=== PATIENT | female | born 1935 | race Caucasian/White ===

== ENCOUNTER 2017-02-26 15:30 | Inpatient (IN) | payer MEDICARE ==
[~2017-02-26] VITALS: Ht 160 cm; Wt 115.3 kg
[~2017-02-26 15:30] MED LIST: ALLO100 PO; ASPI325T PO; DYAZ PO; FURO20TA PO; LISI40TA PO; LORA1TAB PO; POTA-243 PO; VITA500015 PO
[2017-02-26 15:38] VITALS: BP 154/80; PULSE 80; RESP 20; TEMP 98.4; O2SAT 100
--- NOTE | 2017-02-26 15:45 | PD ---
Physical Exam Time Seen by Provider: 15:40 Narrative 82yo F c/o rash after taking Bactrim for 3 days for a different rash being treated by dermatology. Last took Bactrim Wednesday night and saw chief minister yesterday. Fever 102.0 last night; denies fever today. Denies airway edema. No change in SOB. Patient seen in triage. VS reviewed. Awaiting bed placement. Data Data Last Documented VS Vital Signs Date Time Temp Pulse Resp B/P Pulse Ox O2 Delivery O2 Flow Rate FiO2 02/26/17 15:38 98.4 80 20 154/80 100 Room Air MDM Supervised Visit with OBDULIA: Darlene Carr Feb 26, 2017 15:45
[2017-02-26] MEDS ORDERED: DOXY100C PO (15:57)
[2017-02-26] MEDS ORDERED: ASPI325T PO (15:57)
[2017-02-26] MEDS ORDERED: ALLO100T PO (15:57)
[2017-02-26] MEDS ORDERED: TRIA37.5 PO (15:57)
[2017-02-26] MEDS ORDERED: LORA1TAB12 PO (15:57)
--- NOTE | 2017-02-26 16:18 | PD ---
HPI Chief Complaint: Skin Problem Time Seen by Provider: 16:15 Travel History International Travel<30 days: No Contact w/Intl Traveler<30days: No Traveled to known affect area: No History of Present Illness HPI 82 year old female presents to the emergency department for evaluation of a skin rash/fever. Patient states she has a rash underneath her breasts, groin, skinfolds the abdomen has been ongoing. She states she saw her cork painter and grader who placed her on Bactrim after a culture came back. She states that she took 6 pills of the Bactrim and started to notice a rash on her bilateral upper extremities and bilateral posterior thighs. She states the rash is painful. Patient reports she had a fever for 102 last night between 9 and 10 PM. She denies fever today. Patient denies any chest pain or shortness of breath. No abdominal pain. Patient's primary care physician is Dr. Beach. Patient states that he put her on doxycycline which she has taken 1 pill. PFSH Past Medical History Arthritis: Yes Asthma: No Autoimmune Disease: No Blood Disorders: No Bipolar Disorder: Yes Anxiety: Yes Heart Rhythm Problems: No Cancer: No Cardiovascular Problems: Yes High Cholesterol: Yes Chemotherapy: No Chest Pain: No Congestive Heart Failure: No COPD: No Cerebrovascular Accident: No Diminished Hearing: No Deep Vein Thrombosis: Yes (09/28/2008) Endocrine: No Gastrointestinal Disorders: No GERD: No Genitourinary: Yes Headaches: No Hepatitis: No Hiatal Hernia: No Hypertension: Yes Immune Disorder: No Implanted Vascular Access Dvce: Yes Kidney Stones: No Musculoskeletal: Yes Neurologic: Yes Psychiatric: No Reproductive: No Respiratory: Yes Myocardial Infarction: No Radiation Therapy: No Renal Failure: No Seizures: No Sleep Apnea: Yes (C-PAP @night) Ulcer: No Tetanus Vaccination: > 5 Years Past Surgical History Abdominal Surgery: Yes (gall blader) AICD: No Appendectomy: Yes Body Medical Devices: EYE LENS Cardiac Surgery: No Cholecystectomy: Yes Ear Surgery: No Endocrine Surgery: No Eye Surgery: Yes (OPAL CATARACT ) Genitourinary Surgery: No Gynecologic Surgery: Yes (hysterctomy) Hysterectomy: Yes Joint Replacement: Yes (LEFT PARTIAL KNEE REPLACEMENT 09/17/2008) Neurologic Surgery: No Oral Surgery: Yes (T&A CHILDHOOD) Pacemaker: No Thoracic Surgery: No Tonsillectomy: Yes Other Surgery: Yes (REVISED LEFT KNEE 2009) Social History Alcohol Use: No Tobacco Use: No Substance Use: No Allergies-Medications (Allergen,Severity, Reaction): Coded Allergies: Codeine (Verified Allergy, Severe, INCOHERENT, 02/26/17) Naprosyn (Verified Allergy, Severe, 02/26/17) Latex (Verified Allergy, Unknown, POSSIBLE ALLERGY, 02/26/17) Reported Meds & Prescriptions Reported Meds & Active Scripts Active Reported Doxycycline Hyclate 100 Mg Cap 100 Mg PO BID Lorazepam 1 Mg Tab 1 Mg PO BID PRN Aspirin 325 Mg Tab 325 Mg PO DAILY Allopurinol 100 Mg Tab 100 Mg PO BID Triamterene-Hydrochlorothiazide 37.5-25 Mg Tab 1 Tab PO DAILY Review of Systems Except as stated in HPI: all other systems reviewed are Neg Physical Exam Narrative GENERAL: Well-nourished, well-developed elderly female patient, afebrile. SKIN: Focused skin assessment warm/dry. Erythema and pustules noted to bilateral upper extremities. Patient has erythematous excoriation to the under the bilateral breasts, abdominal skin folds, coin. She has scaly erythematous rash to the posterior thighs. HEAD: Normocephalic. Atraumatic. EYES: No scleral icterus. No injection or drainage. NECK: Supple, trachea midline. No JVD or lymphadenopathy. CARDIOVASCULAR: Regular rate and rhythm without murmurs, gallops, or rubs. RESPIRATORY: Breath sounds equal bilaterally. No accessory muscle use. Lungs sounds are clear to auscultation. GASTROINTESTINAL: Abdomen soft, non-tender, nondistended. MUSCULOSKELETAL: No cyanosis, or edema. BACK: Nontender without obvious deformity. No CVA tenderness. Data Data Last Documented VS Vital Signs Date Time Temp Pulse Resp B/P Pulse Ox O2 Delivery O2 Flow Rate FiO2 02/26/17 17:06 100.4 02/26/17 16:21 Room Air 02/26/17 15:38 80 20 154/80 100 Orders Complete Blood Count With Diff (02/26/17 16:08) Comprehensive Metabolic Panel (02/26/17 16:08) Lactic Acid Sepsis Protocol (02/26/17 16:08) Urinalysis - C+S If Indicated (02/26/17 16:08) Blood Culture (02/26/17 16:08) Ecg Monitoring (02/26/17 16:08) Iv Access Insert/Monitor (02/26/17 16:08) Oximetry (02/26/17 16:08) Oxygen Administration (02/26/17 16:08) Sodium Chlorid 0.9% 500 Ml Inj (Ns 500 M (02/26/17 16:30) Acetaminophen (Tylenol) (02/26/17 17:15) Sodium Chlorid 0.9% 500 Ml Inj (Ns 500 M (02/26/17 18:15) Labs Laboratory Tests Test 02/26/17 02/26/17 16:45 17:00 White Blood Count 16.6 TH/MM3 Red Blood Count 4.13 MIL/MM3 Hemoglobin 11.5 GM/DL Hematocrit 37.1 % Mean Corpuscular Volume 89.7 FL Mean Corpuscular Hemoglobin 28.0 PG Mean Corpuscular Hemoglobin 31.2 % Concent Red Cell Distribution Width 17.0 % Platelet Count 273 TH/MM3 Mean Platelet Volume 8.1 FL Neutrophils (%) (Auto) 79.5 % Lymphocytes (%) (Auto) 11.5 % Monocytes (%) (Auto) 6.9 % Eosinophils (%) (Auto) 1.9 % Basophils (%) (Auto) 0.2 % Neutrophils # (Auto) 13.2 TH/MM3 Lymphocytes # (Auto) 1.9 TH/MM3 Monocytes # (Auto) 1.1 TH/MM3 Eosinophils # (Auto) 0.3 TH/MM3 Basophils # (Auto) 0.0 TH/MM3 CBC Comment DIFF FINAL Differential Comment Sodium Level 138 MEQ/L Potassium Level 4.1 MEQ/L Chloride Level 106 MEQ/L Carbon Dioxide Level 25.4 MEQ/L Anion Gap 7 MEQ/L Blood Urea Nitrogen 20 MG/DL Creatinine 1.39 MG/DL Estimat Glomerular Filtration 36 ML/MIN Rate Random Glucose 88 MG/DL Calcium Level 8.6 MG/DL Total Bilirubin 0.6 MG/DL Aspartate Amino Transf 18 U/L (AST/SGOT) Alanine Aminotransferase 17 U/L (ALT/SGPT) Alkaline Phosphatase 94 U/L Total Protein 6.5 GM/DL Albumin 2.8 GM/DL Lactic Acid Level 2.1 mmol/L [facility] Medical Decision Making Medical Screen Exam Complete: Yes Emergency Medical Condition: Yes Medical Record Reviewed: Yes Differential Diagnosis Cellulitis versus sepsis versus allergic reaction versus [place] intertrigo Narrative Course 82 year old female presents to the emergency department for evaluation of painful skin rash since yesterday with fever last night. CBC, CMP, Lactic acid , blood cultures x2, UA are ordered and pending. Patient is given NS 500 ml bolus. CBC shows leukocytosis of 16.6, neutrophil percentage 79.5. CMP shows BUN 20, creatinine 1.39. Lactic acid is elevated at 2.1. UA is still pending. My attending physician, Dr. gambino, examined the patient with me. This could be pustular psoriasis. We will hold on antibiotics at this time until patient is admitted due to possibility of pustular psoriasis. Patient is given additional normal saline 500 mL bolus. [facility] is paged for admission. Dr. Cortez accepted admission. Sepsis Criteria SIRS Criteria (2 or more): WBC > 85058, < 4000 or > 10% bands Diagnosis Primary Impression: Skin rash Additional Impressions: Leukocytosis Qualified Code: D72.829 - Leukocytosis, unspecified type Fever Qualified Code: R50.9 - Fever, unspecified fever cause Admitting Information Admitting Physician Requests: Admit Gena Simeon Feb 26, 2017 16:18
[2017-02-26] MEDS ORDERED: SODIUM CHLORID 0.9% 500 ML INJ 500 ML IV ONE ×2 (16:30→18:15)
[2017-02-26 17:06] VITALS: BP 159/87; TEMP 100.4
[2017-02-26] MEDS ORDERED: ACETAMINOPHEN 325 MG TAB PO ONE (17:15)
[2017-02-26 17:21] LABS: AUTOMATED NEUTROPHIL # 13.2 TH/MM3 (1.8-7.7); BASOPHIL % 0.2 % (0.0-2.0); EOSINOPHIL # 0.3 TH/MM3 (0-0.4); EOSINOPHIL % 1.9 % (0.0-4.0); HEMATOCRIT 37.1 % (35.0-46.0); HEMO FLAGS DIFF FINAL; LYMPH % 11.5 % (9.0-44.0); LYMPHOCYTE # 1.9 TH/MM3 (1.0-4.8); MEAN CELL VOLUME 89.7 FL (80.0-100.0); MEAN CORPUSCULAR HGB CONC 31.2 % (32.0-36.0); MONO % 6.9 % (0.0-8.0); NEUT % 79.5 % (16.0-70.0); PLATELET COUNT 273 TH/MM3 (150-450); RED BLOOD COUNT 4.13 MIL/MM3 (4.00-5.30); WHITE BLOOD COUNT 16.6 TH/MM3 (4.0-11.0)
[2017-02-26 17:41] LABS: ANION GAP 7 MEQ/L (5-15); AST (GOT) 18 U/L (15-37); BICARBONATE 25.4 MEQ/L (21.0-32.0); BLOOD UREA NITROGEN 20 MG/DL (7-18); CHLORIDE 106 MEQ/L (98-107); GLOMERULAR FILTRATION RATE 36 ML/MIN (>89); POTASSIUM 4.1 MEQ/L (3.5-5.1); SODIUM (NA) 138 MEQ/L (136-145)
[2017-02-26 17:43] LABS: ALT (GPT) 17 U/L (10-53)
[2017-02-26 17:44] LABS: ALKALINE PHOSPHATASE 94 U/L (45-117); TOTAL BILIRUBIN ADULT 0.6 MG/DL (0.2-1.0)
--- NOTE | 2017-02-26 18:27 | PD ---
Physical Exam Date Seen by Provider: Feb 26, 2017 Time Seen by Provider: 18:22 Narrative 82-year-old female came to the emergency room with history of rash all over her body since yesterday. Patient does have some rash that is getting treated by her maker up folding with Bactrim. However this new rash started which is more generalized since yesterday. Patient is being seen by the nurse practitioner and I'm supervising her. Patient had a low-grade temperature in the ER and leukocytosis. I went and examined her and patient has papular pustular erythematous rash that's generalized including the palmar aspect. There are about 0.5 mm diameter each. Patient does appear to be in some distress and pain and arthralgia but does not appear to be toxic. To me the rash and the entire picture seems to fit for generalized pustular psoriasis. The treatment for GPP is oral retinoids or methotrexate as first line agent. There is no oral retinoid in the formulary available. Up-to-date clearly says that GPP could have low-grade fever, leukocytosis and elevated sedimentation rate. I have advised not to get her started on antibiotics. Patient will received some fluid especially since the lactic acid is mildly elevated. I would like her to be admitted and be seen by infectious disease. I've explained most of this to the family and the patient. They understand and are agreeable with the admission. Data Data Last Documented VS Vital Signs Date Time Temp Pulse Resp B/P Pulse Ox O2 Delivery O2 Flow Rate FiO2 02/26/17 17:06 100.4 159/87 02/26/17 16:21 Room Air 02/26/17 15:38 80 20 100 Orders Complete Blood Count With Diff (02/26/17 16:08) Comprehensive Metabolic Panel (02/26/17 16:08) Lactic Acid Sepsis Protocol (02/26/17 16:08) Urinalysis - C+S If Indicated (02/26/17 16:08) Blood Culture (02/26/17 16:08) Ecg Monitoring (02/26/17 16:08) Iv Access Insert/Monitor (02/26/17 16:08) Oximetry (02/26/17 16:08) Oxygen Administration (02/26/17 16:08) Sodium Chlorid 0.9% 500 Ml Inj (Ns 500 M (02/26/17 16:30) Acetaminophen (Tylenol) (02/26/17 17:15) Sodium Chlorid 0.9% 500 Ml Inj (Ns 500 M (02/26/17 18:15) Admit Order (Ed Use Only) (02/26/17 18:12) Labs Laboratory Tests Test 02/26/17 02/26/17 16:45 17:00 White Blood Count 16.6 TH/MM3 Red Blood Count 4.13 MIL/MM3 Hemoglobin 11.5 GM/DL Hematocrit 37.1 % Mean Corpuscular Volume 89.7 FL Mean Corpuscular Hemoglobin 28.0 PG Mean Corpuscular Hemoglobin 31.2 % Concent Red Cell Distribution Width 17.0 % Platelet Count 273 TH/MM3 Mean Platelet Volume 8.1 FL Neutrophils (%) (Auto) 79.5 % Lymphocytes (%) (Auto) 11.5 % Monocytes (%) (Auto) 6.9 % Eosinophils (%) (Auto) 1.9 % Basophils (%) (Auto) 0.2 % Neutrophils # (Auto) 13.2 TH/MM3 Lymphocytes # (Auto) 1.9 TH/MM3 Monocytes # (Auto) 1.1 TH/MM3 Eosinophils # (Auto) 0.3 TH/MM3 Basophils # (Auto) 0.0 TH/MM3 CBC Comment DIFF FINAL Differential Comment Sodium Level 138 MEQ/L Potassium Level 4.1 MEQ/L Chloride Level 106 MEQ/L Carbon Dioxide Level 25.4 MEQ/L Anion Gap 7 MEQ/L Blood Urea Nitrogen 20 MG/DL Creatinine 1.39 MG/DL Estimat Glomerular Filtration 36 ML/MIN Rate Random Glucose 88 MG/DL Calcium Level 8.6 MG/DL Total Bilirubin 0.6 MG/DL Aspartate Amino Transf 18 U/L (AST/SGOT) Alanine Aminotransferase 17 U/L (ALT/SGPT) Alkaline Phosphatase 94 U/L Total Protein 6.5 GM/DL Albumin 2.8 GM/DL Lactic Acid Level 2.1 mmol/L [facility] Supervised Visit with OBDULIA: Yes Diagnosis Primary Impression: Skin rash Additional Impressions: Fever Qualified Code: R50.9 - Fever, unspecified fever cause Leukocytosis Qualified Code: D72.829 - Leukocytosis, unspecified type Generalized pustular psoriasis of von Zumbush Kaur Woodall MD Feb 26, 2017 18:27
[2017-02-26] MEDS ORDERED: ACETAMINOPHEN 325 MG TAB PO PRN (19:00)
[2017-02-26] MEDS ORDERED: VANCOMYCIN INJ 1,000 MG in SODIUM CHLOR 0.9% 250 ML INJ 250 ML IV SCH (19:00)
[2017-02-26] MEDS ORDERED: PIPERACIL-TAZO 3.375 GM PREMIX 50 ML IV SCH (19:00)
[2017-02-26] MEDS ORDERED: cloNIDine HCL 0.2 MG TAB PO PRN (19:00)
[2017-02-26] MEDS ORDERED: NALOXONE HCL 0.4 MG/ML AMP IV PRN (19:00)
[2017-02-26] MEDS ORDERED: TEMAZEPAM 15 MG CAP PO PRN (19:00)
[2017-02-26] MEDS ORDERED: SODIUM CHLORIDE 0.9% FLUSH 10 ML FLUSH IV FLUSH PRN (19:00)
[2017-02-26] MEDS ORDERED: ACETAMINOPHEN/HYDROcodone 325 MG/5 MG TAB PO PRN (19:00)
[2017-02-26] MEDS ORDERED: MAGNESIUM HYDROXIDE SUSP 30 ML CUP PO PRN (19:00)
[2017-02-26] MEDS ORDERED: ONDANSETRON HCL 4 MG/2 ML VIAL IVP PRN (19:00)
[2017-02-26] MEDS ORDERED: ENALAPRILAT 1.25 MG/ML VIAL IV PRN (19:00)
[2017-02-26 19:21] LABS: BLOOD, URINE NEG (NEG); GLUCOSE,URINE NEG (NEG); KETONE, URINE NEG (NEG); NITRITE,URINE NEG (NEG); SQUAMOUS EPITHELIAL CELL URINE 14 /hpf (0-5); URINE COLOR YELLOW (YELLW/STRAW)
[2017-02-26 19:26] LABS: COMMENT (UR) CATH-CULT NOT IND; CULTURE IF INDICATED CATH CULTURE NOT IND
--- NOTE | 2017-02-26 19:26 | RADRPT ---
EXAM DATE/TIME: 02/26/2017 19:02 [place] COMPARISON: CHEST SINGLE AP, June 28, 2015, 19:18. INDICATIONS : Fever. MEDICAL HISTORY : respiratory disorders. SURGICAL HISTORY : bilateral cataract sx, hysterectomy, left knee sx, appendectomy ENCOUNTER: Initial ACUITY: 1 day PAIN SCORE: 0/10 LOCATION: Bilateral chest FINDINGS: A single view of the chest demonstrates the lungs to be symmetrically aerated without evidence of mas s, infiltrate or effusion. The cardiomediastinal contours are unremarkable. Osseous structures are intact. CONCLUSION: No acute disease. Néstor Diana MD FACR on February 26, 2017 at 19:24 Board Certified Radiologist. This report was verified electronically.
[2017-02-26 19:34] LABS: LACTIC ACID GHOST NOT REPORTABLE
[2017-02-26] MEDS: 1/2 NS + KCL 20 MEQ INJ 1,000 ML IV SCH (20:18)
[2017-02-26 20:41] VITALS: BP 153/63; PULSE 88; RESP 18; TEMP 97.9; O2SAT 97
[2017-02-26 21:00] VITALS: PULSE 87
[2017-02-26] MEDS: ALLOPURINOL 100 MG TAB PO SCH (22:08)
[2017-02-26] MEDS: SODIUM CHLORIDE 0.9% FLUSH 10 ML FLUSH IV FLUSH SCH (22:09)
[2017-02-26] MEDS ORDERED: methylPREDNISolone SOD SUCC 40 MG/1 ML VIAL IV ONE (22:45)
[2017-02-26] MEDS: LORazepam 1 MG TAB PO PRN (22:52)
[2017-02-26] MEDS: IBUPROFEN 400 MG TAB PO PRN (22:53)
[2017-02-27] VITALS: BP 144/65; PULSE 80; RESP 18; TEMP 96.7; O2SAT 99
[2017-02-27 04:00] VITALS: BP 119/57; PULSE 75; RESP 16; TEMP 97.6; O2SAT 100
[2017-02-27 06:15] LABS: AUTOMATED NEUTROPHIL # 14.4 TH/MM3 (1.8-7.7); BASOPHIL % 0.1 % (0.0-2.0); EOSINOPHIL % 0.1 % (0.0-4.0); HEMATOCRIT 36.4 % (35.0-46.0); HEMO FLAGS DIFF FINAL; LYMPH % 7.8 % (9.0-44.0); LYMPHOCYTE # 1.2 TH/MM3 (1.0-4.8); MEAN CELL VOLUME 89.3 FL (80.0-100.0); MEAN CORPUSCULAR HEMOGLOBIN 28.1 PG (27.0-34.0); MEAN CORPUSCULAR HGB CONC 31.5 % (32.0-36.0); MONO % 1.4 % (0.0-8.0); NEUT % 90.6 % (16.0-70.0); PLATELET COUNT 248 TH/MM3 (150-450); RED BLOOD COUNT 4.07 MIL/MM3 (4.00-5.30); RED CELL DISTRIBUTION WIDTH 16.9 % (11.6-17.2); WHITE BLOOD COUNT 15.9 TH/MM3 (4.0-11.0)
[2017-02-27 06:46] LABS: BICARBONATE 22.2 MEQ/L (21.0-32.0); POTASSIUM 4.2 MEQ/L (3.5-5.1)
[2017-02-27 08:35] VITALS: BP 134/70; PULSE 75; RESP 18; TEMP 97.6; O2SAT 99
[2017-02-27] MEDS ORDERED: PNEUMOCOCCAL POLYVALENT INJ 25 MCG/0.5 ML SYR IM ONE (09:00)
[2017-02-27] MEDS: SODIUM CHLORIDE 0.9% FLUSH 10 ML FLUSH IV FLUSH SCH ×2 (09:00→20:43)
[2017-02-27] MEDS: TRIAMTERENE/HCTZ 37.5 MG/25 MG TAB PO SCH (10:12)
[2017-02-27] MEDS: ALLOPURINOL 100 MG TAB PO SCH ×2 (10:12→20:43)
[2017-02-27] MEDS: ASPIRIN 325 MG TAB PO SCH (10:14)
[2017-02-27] MEDS: 1/2 NS + KCL 20 MEQ INJ 1,000 ML IV SCH (10:17)
[2017-02-27 12:00] VITALS: BP 136/64; PULSE 77; RESP 16; TEMP 96.6; O2SAT 97
[2017-02-27] MEDS: NYSTATIN 100,000 U/GM PWD 15 GM BTL TOPICAL SCH ×2 (14:45→22:00)
--- NOTE | 2017-02-27 14:52 | HHI.HP ---
HPI Service [facility] Hospitalists Primary Care Physician Saud Beach MD, PhD Admission Diagnosis skin rash, leukocytosis, fever, r/o sepsis Chief Complaint: rash Travel History International Travel<30 Days: No Contact w/Intl Traveler <30 Da: No Traveled to Known Affected Are: No History of Present Illness Pt is an 82 y/o F with depression, anxiety, thyroid nodule, hypertension, chronic kidney disease stage III, gout, hyperlipidemia, orbit obesity, osteoarthritis. Patient presented to the ER 02/26/17 with complaint of diffuse rash over her entire body which started the day prior. Patient was placed on Bactrim for pre-existing rash by dermatology. However, the current rash worsened following initiation of Bactrim therapy. In the ER, patient had a fever with MAXIMUM TEMPERATURE of 100.4F. Patient's white count was elevated at 6.6k. Patient was admitted to [facility] for further evaluation and treatment Review of Systems Constitutional: DENIES: Diaphoretic episodes, Fatigue, Fever, Weight gain, Weight loss, Chills, Dizziness, Change in appetite, Night Sweats Endocrine: DENIES: Heat/cold intolerance, Polydipsia, Polyuria, Polyphagia Eyes: DENIES: Blurred vision, Diplopia, Eye inflammation, Eye pain, Vision loss , Photosensitivity, Double Vision Ears, nose, mouth, throat: DENIES: Tinnitus, Hearing loss, Vertigo, Nasal discharge, Oral lesions, Throat pain, Hoarseness, Ear Pain, Running Nose, Epistaxis, Sinus Pain, Toothache, Odynophagia Respiratory: DENIES: Apneas, Cough, Snoring, Wheezing, Hemoptysis, Sputum production, Shortness of breath Gastrointestinal: DENIES: Abdominal pain, Black stools, Bloody stools, BRB per rectum, Constipation, Diarrhea, GERD, Nausea, Reflux, Vomiting, Difficulty Swallowing, Anorexia Genitourinary: DENIES: Urinary frequency, Urinary incontinence, Urgency, Hematuria, Dysuria, Nocturia Musculoskeletal: DENIES: Joint pain, Muscle aches, Stiffness, Joint Swelling, Back pain, Neck pain Integumentary: COMPLAINS OF: Rash, DENIES: Abnormal pigmentation, Pruritus, Nail changes, Breast masses, Breast skin changes, Nipple discharge Hematologic/lymphatic: DENIES: Bruising, Lymphadenopathy Immunologic/allergic: DENIES: Eczema, Urticaria Neurologic: DENIES: Abnormal gait, Headache, Localized weakness, Paresthesias, Seizures, Speech Problems, Tremor, Poor Balance Psychiatric: DENIES: Anxiety, Confusion, Mood changes, Depression, Hallucinations, Agitation, Suicidal Ideation, Homicidal Ideation, Delusions, History of Bipolar, History of Schizophrenia Past Family Social History Past Medical History 1) hypertension 2) depression with anxiety 3) thyroid nodule 4) chronic kidney disease, stage III 5) gout 6) hyperlipidemia 7) osteoarthritis 8) morbid obesity 9) allergic rhinitis 10) overactive bladder 11) restless leg syndrome Past Surgical History 1. History of Appendectomy 2. History of Biopsy Skin 3. History of Breast Surgery Lumpectomy 4. History of Cataract Surgery 5. History of Cataract Surgery 6. History of Cholecystectomy Laparoscopic 7. History of Knee Arthroplasty 8. History of Revision Of Total Knee Arthroplasty, All Components 9. History of Tonsillectomy With Adenoidectomy 10. History of Total Abdominal Hysterectomy With Remov of Srikanth Ovaries (cervix removed) 11. History of Tubal Ligation 12. History of Uterine Myomectomy Reported Medications Last Impressions Chest X-Ray 02/26/17 185 Signed Impressions: Service Date/Time: Wednesday, February 26, 2017 19:02 - CONCLUSION: No acute disease. Néstor Diana MD FACR Allergies: Coded Allergies: Codeine (Verified Allergy, Severe, INCOHERENT, 02/26/17) Bactrim (Verified Allergy, Intermediate, pustulated rash, 02/27/17) Latex (Verified Allergy, Unknown, POSSIBLE ALLERGY, 02/26/17) Naprosyn (Verified Allergy, Unknown, 02/26/17) Patient states 15 years ago at [facility]. Patient has been taking Ibuprofen at home for years and has not had any reactions. Family History Noncontributory Social History - - Patient lives with her adult son (Dk) who is both physical and mental issues - No tobacco use - No alcohol use - No illicit street drugs Physical Exam Vital Signs Vital Signs Date Time Temp Pulse Resp B/P Pulse Ox O2 Delivery O2 Flow Rate FiO2 02/27/17 12:00 96.6 77 16 136/64 97 02/27/17 08:35 97.6 75 18 134/70 99 02/27/17 04:00 97.6 75 16 119/57 100 02/27/17 00:52 19 02/27/17 00:00 96.7 80 18 144/65 99 02/26/17 21:00 87 02/26/17 20:41 97.9 88 18 153/63 97 02/26/17 17:06 100.4 159/87 02/26/17 16:21 Room Air 02/26/17 15:38 98.4 80 20 154/80 100 Room Air Physical Exam GENERAL: This is a well-nourished, well-developed patient, in no apparent distress. SKIN: No rashes, ecchymoses or lesions. Cool and dry. HEAD: Atraumatic. Normocephalic. No temporal or scalp tenderness. EYES: Pupils equal round and reactive. Extraocular motions intact. No scleral icterus. No injection or drainage. ENT: Nose without bleeding, purulent drainage or septal hematoma. Throat without erythema, tonsillar hypertrophy or exudate. Uvula midline. Airway patent. NECK: Trachea midline. No JVD or lymphadenopathy. Supple, nontender, no meningeal signs. CARDIOVASCULAR: Regular rate and rhythm without murmurs, gallops, or rubs. RESPIRATORY: Clear to auscultation. Breath sounds equal bilaterally. No wheezes , rales, or rhonchi. GASTROINTESTINAL: Abdomen soft, non-tender, nondistended. No hepato-splenomegaly , or palpable masses. No guarding. MUSCULOSKELETAL: Extremities without clubbing, cyanosis, or edema. No joint tenderness, effusion, or edema noted. No calf tenderness. Negative Homans sign bilaterally. NEUROLOGICAL: Awake and alert. Cranial nerves II through XII intact. Motor and sensory grossly within normal limits. Five out of 5 muscle strength in all muscle groups. Normal speech. Laboratory Laboratory Tests Test 02/26/17 02/26/17 02/26/17 02/27/17 16:45 17:00 18:29 00:10 White Blood Count 16.6 Red Blood Count 4.13 Hemoglobin 11.5 Hematocrit 37.1 Mean Corpuscular Volume 89.7 Mean Corpuscular Hemoglobin 28.0 Mean Corpuscular Hemoglobin 31.2 Concent Red Cell Distribution Width 17.0 Platelet Count 273 Mean Platelet Volume 8.1 Neutrophils (%) (Auto) 79.5 Lymphocytes (%) (Auto) 11.5 Monocytes (%) (Auto) 6.9 Eosinophils (%) (Auto) 1.9 Basophils (%) (Auto) 0.2 Neutrophils # (Auto) 13.2 Lymphocytes # (Auto) 1.9 Monocytes # (Auto) 1.1 Eosinophils # (Auto) 0.3 Basophils # (Auto) 0.0 CBC Comment DIFF FINAL Differential Comment Sodium Level 138 Potassium Level 4.1 Chloride Level 106 Carbon Dioxide Level 25.4 Anion Gap 7 Blood Urea Nitrogen 20 Creatinine 1.39 Estimat Glomerular Filtration 36 Rate Random Glucose 88 Calcium Level 8.6 Total Bilirubin 0.6 Aspartate Amino Transf 18 (AST/SGOT) Alanine Aminotransferase 17 (ALT/SGPT) Alkaline Phosphatase 94 Total Protein 6.5 Albumin 2.8 Lactic Acid Level 2.1 1.1 Urine Color YELLOW Urine Turbidity HAZY Urine pH 6.0 Urine Specific Bloomer 1.018 Urine Protein TRACE Urine Glucose (UA) NEG Urine Ketones NEG Urine Occult Blood NEG Urine Nitrite NEG Urine Bilirubin NEG Urine Urobilinogen LESS THAN 2.0 Urine Leukocyte Esterase LARGE Urine WBC 4 Urine Squamous Epithelial 14 Cells Microscopic Urinalysis Comment CATH-CULT NOT IND Test 02/27/17 05:40 White Blood Count 15.9 Red Blood Count 4.07 Hemoglobin 11.4 Hematocrit 36.4 Mean Corpuscular Volume 89.3 Mean Corpuscular Hemoglobin 28.1 Mean Corpuscular Hemoglobin 31.5 Concent Red Cell Distribution Width 16.9 Platelet Count 248 Mean Platelet Volume 8.1 Neutrophils (%) (Auto) 90.6 Lymphocytes (%) (Auto) 7.8 Monocytes (%) (Auto) 1.4 Eosinophils (%) (Auto) 0.1 Basophils (%) (Auto) 0.1 Neutrophils # (Auto) 14.4 Lymphocytes # (Auto) 1.2 Monocytes # (Auto) 0.2 Eosinophils # (Auto) 0.0 Basophils # (Auto) 0.0 CBC Comment DIFF FINAL Differential Comment Sodium Level 136 Potassium Level 4.2 Chloride Level 106 Carbon Dioxide Level 22.2 Anion Gap 8 Blood Urea Nitrogen 23 Creatinine 1.36 Estimat Glomerular Filtration 37 Rate Random Glucose 163 Calcium Level 8.4 Date/Time Procedure Status Source Growth 02/26/17 17:00 Aerobic Blood Culture - Preliminary Resulted Blood Peripheral NO GROWTH IN 1 DAY 02/26/17 17:00 Anaerobic Blood Culture - Preliminary Resulted Blood Peripheral NO GROWTH IN 1 DAY Result Diagram: 02/27/17 0540 02/27/17 0540 Imaging Last Impressions Chest X-Ray 02/26/17 1851 Signed Impressions: Service Date/Time: Sunday, February 26, 2017 19:02 - CONCLUSION: No acute disease. Néstor Diana MD FACR Septic Shock Reassessment Heart: Regular rate and rhythm Lungs: Clear Skin: Warm Peripheral Pulses: Bounding Right Radial Bounding Left Radial Bounding Right Popliteal Bounding Left Popliteal Bounding Right Dorsalis Pedis Bounding Left Dorsalis Pedis Bounding Right Posterior Tibial Bounding Left Posterior Tibial Capillary Refill: Brisk Assessment and Plan Problem List: (1) Skin rash Status: Acute Plan: - Comanagement with infectious disease - I have reviewed the last available note from dermatology (02/25/17) in the [facility] EHR - Patient diagnosed with 1) Dyshidrotic Eczema 2) drug eruption rash 3) Intertrigio - Dermatology had recommended steroid cream, stopping Bactrim, starting doxycycline for 3 weeks - Case d/w ID, Dr. Pandey, (02/27/17). Dr. Pandey feels the predominant issue is drug eruption rash. - No antibiotics at this time - Start nystatin powder under patient's breast for tinea - Observe - Mild leukocytosis, reactive? - Repeat CBC in a.m. - No fever since 5 PM on 02/26/2017 - Observe - Stop IV fluids (2) Gout Status: Chronic Plan: - allopurinol (3) HTN (hypertension) Status: Chronic Plan: - Stable - Continue triamterene hydrochlorothiazide (4) OA (osteoarthritis) Status: Acute Plan: - ibuprofen prn (5) JUDITH (obstructive sleep apnea) Status: Acute Plan: - use home CPAP at night. Physician Certification 2 Midnight Certification Type: Admission for Inpatient Services Order for Inpatient Services The services are ordered in accordance with Medicare regulations or non- Medicare payer requirements, as applicable. In the case of services not specified as inpatient-only, they are appropriately provided as inpatient services in accordance with the 2-midnight benchmark. Estimated LOS (days): 33 3 days is the estimated time the patient will need to remain in the hospital, assuming treatment plan goals are met and no additional complications. Post-Hospital Plan: Not yet determined Problem Qualifiers (1) Gout: Qualified Code: M10.9 - Gout, unspecified cause, unspecified chronicity, unspecified site (2) HTN (hypertension): Qualified Code: I10 - Essential hypertension (3) OA (osteoarthritis): Beau Cortez DO Feb 27, 2017 14:52
[2017-02-27] MEDS: DOCUSATE SODIUM 100 MG CAP PO SCH ×2 (15:00→20:43)
[2017-02-27] MEDS ORDERED: BISACODYL 10 MG SUPP RECTAL PRN (15:00)
[2017-02-27 16:00] VITALS: BP 132/60; PULSE 82; RESP 16; TEMP 96.1; O2SAT 99
--- NOTE | 2017-02-27 16:25 | EKG ---
Date Performed: 02/26/2017 Time Performed: 19:04:57 PTAGE: 82 years EKG: Sinus rhythm WITH FIRST DEGREE AV BLOCK ABNORMAL ECG PREVIOUS TRACING : 06/28/2015 19.47 Compared to prior tracing no significant change DOCTOR: Louie Turner Interpretating Date/Time 02/27/2017 16:24:41
--- NOTE | 2017-02-27 17:05 | MB ---
cc: ROHINI CORTEZ FRANKLYN F. MD DATE OF CONSULTATION: 02/27/[address] Cortez. REASON FOR CONSULTATION Pustular psoriasis. HISTORY OF PRESENT ILLNESS This is an 82-year-old white female who presented to the emergency department with diffuse rash all over her body. The patient was being followed by a acute specialist for a skin condition and she was put on Bactrim six days ago. She stated that she took the Bactrim for three days and then she woke up with a sudden rash all over the body. The rash was noted to be different from the previous rash that she had seen the acute specialist for. She stopped taking the Bactrim and she noted that the rash was weeping for two days and then she presented to the emergency department yesterday for evaluation. She noted that the rash in the buttock area was of a nature that when she would sit on the commode she would have flaking of the skin. Initially it was noted at the upper extremities and posterior thighs. She reportedly had an elevated temperature of 102 degrees on the night before she presented to the emergency department. She was noted to have been started on doxycycline and took one pill only. She notes that there is mild itching of the skin. She tells me that there was also some drainage coming from her ear. She reported that the rash is itching but not severely. She had a temperature of 100.4 degrees in the emergency department and the white count was elevated at 16.6 with 79% neutrophils. She denies pain in the mouth. PAST MEDICAL HISTORY 1. Arthritis. 2. Hypercholesteremia. 3. Hypertension. 4. Sleep apnea. 5. Generalized pustular psoriasis. 6. History of fibroid tumors. 7. Left knee arthroplasty placed August,, revised in 2009. 8. Appendectomy. 9. Tonsillectomy. 10. Lumpectomy. 11. Total abdominal hysterectomy and salpingo-oophorectomy. ALLERGIES NAPROSYN, LATEX, CODEINE. MEDICATIONS 1. Aspirin. 2. Maxzide. 3. Ibuprofen. 4. Allopurinol. 5. Ativan. 6. The patient received one dose of Solu-Medrol yesterday evening. SOCIAL HISTORY No tobacco, no alcohol, no illicit drugs. FAMILY HISTORY Noncontributory. REVIEW OF SYSTEMS GENERAL: Significant for fever. HEAD, EARS, EYES, NOSE AND THROAT: No visual blurring or diplopia. No nasal bleeding. Positive ear drainage. No difficulty swallowing. Mild soreness of the throat. No neck swelling. CARDIOVASCULAR: No palpitation. No chest pain. RESPIRATORY: No cough or shortness of breath. GASTROINTESTINAL: No nausea, vomiting or abdominal pain. No diarrhea. GENITOURINARY: No urgency, frequency or dysuria. MUSCULOSKELETAL: No muscle aches or pains. INTEGUMENTARY: Diffuse skin rash. HEMATOPOIETIC: No easy bruising or bleeding. NEUROLOGIC: No problems with coordination or tremulousness. PSYCHIATRIC: No problems with mood changes or depression. PHYSICAL EXAMINATION GENERAL: She is an obese female who is in no acute distress. She is awake and alert and oriented. She has mild discomfort from the skin rash. VITAL SIGNS: Temperature 96.6, BP 136/64, respirations 16, heart rate 77. HEENT: The head is atraumatic. Extraocular movements grossly intact. Pupils reactive to light. No icterus. No conjunctival erythema. Oropharynx - moist mucosa without visible lesions. No thrush. NECK: Supple without adenopathy. LUNGS: Clear. HEART: Regular rate and rhythm without murmurs, rubs or gallops. ABDOMEN: Bowel sounds present, soft, nontender, obese. RECTAL: Not performed. EXTREMITIES: No clubbing or cyanosis or edema. SKIN: Diffuse maculopapular rash including the back, arms, chest, thighs, buttocks, groin. The patient has confluent erythematous areas involving the buttock and the thighs at the abdominal fold areas near the groin. The areas of the hands have pustular changes at the surface. This also encompasses the palm of the hands. There are no visible areas of the soles of the feet and there is less involvement of the tibias, and also there is very little involvement of the face. NEUROLOGIC: No gross focal findings. PSYCHIATRIC: The patient is calm and pleasant and cooperative. LABORATORY DATA WBC 15.9, platelets 248, 90% neutrophils, 7% lymphocytes, hemoglobin 11.4, creatinine 1.36, BUN 23, estimated GFR 37, sodium 136. LFTs normal. IMPRESSION 1. Diffuse skin rash which very likely is due to allergic reaction to sulfa in a patient who has been treated with Bactrim before the onset of the diffuse rash. 2. The patient reportedly may have underlying psoriasis. RECOMMENDATIONS 1. Observe without treatment with antibiotics at this time. 2. Send the urine for eosinophils. 3. Monitor the rash and monitor the temperature. 4. I would not give any additional antibiotics at this time. PLAN We may also want to consider a skin biopsy if there is not sufficient improvement over the next couple of days. Thank you for the consultation. I will follow the patient's progress along with you and will make further recommendations on followup. Juan David Worrell MD FD/BJF /2:18 PM /4:19 PM
[2017-02-27 20:00] VITALS: BP 103/51; PULSE 79; RESP 18; TEMP 97.4; O2SAT 97
[2017-02-27] MEDS: LORazepam 1 MG TAB PO PRN (22:24)
[2017-02-27] MEDS: IBUPROFEN 400 MG TAB PO PRN (22:24)
[2017-02-27] MEDS: diphenhydrAMINE HCL 25 MG CAP PO PRN (23:20)
[2017-02-28] VITALS: BP 123/58; PULSE 73; RESP 18; TEMP 96.8; O2SAT 98
[2017-02-28 04:00] VITALS: BP 140/61; PULSE 72; RESP 18; TEMP 96.7; O2SAT 98
[2017-02-28] MEDS: NYSTATIN 100,000 U/GM PWD 15 GM BTL TOPICAL SCH ×3 (06:00→22:51)
[2017-02-28 08:00] VITALS: BP 131/63; PULSE 74; RESP 16; TEMP 96.8; O2SAT 99
[2017-02-28] MEDS: SODIUM CHLORIDE 0.9% FLUSH 10 ML FLUSH IV FLUSH SCH ×2 (09:00→22:52)
[2017-02-28] MEDS: ALLOPURINOL 100 MG TAB PO SCH ×2 (09:47→22:50)
[2017-02-28] MEDS: DOCUSATE SODIUM 100 MG CAP PO SCH ×2 (09:47→21:00)
[2017-02-28] MEDS: ASPIRIN 325 MG TAB PO SCH (09:47)
[2017-02-28] MEDS: TRIAMTERENE/HCTZ 37.5 MG/25 MG TAB PO SCH (09:51)
--- NOTE | 2017-02-28 11:02 | HHI.IDPN ---
Note Infectious Disease Note Patient has no complaints except for itching of the skin. Denies chills Notes some dryness and slight burning pain at the tongue " like when you drink hot coffee and get burnt at the tongue." Presented to the emergency department with diffuse rash all over her body. The patient was being followed by a shearer printed circuit boards for a skin condition and she was put on Bactrim six days ago. She stated that she took the Bactrim for three days and then she woke up with a sudden rash all over the body. The rash was noted to be different from the previous rash that she had seen the shearer printed circuit boards for. She stopped taking the Bactrim and she noted that the rash was weeping for two days and then she presented to the emergency department for evaluation. PAST MEDICAL HISTORY 1. Arthritis. 2. Hypercholesteremia. 3. Hypertension. 4. Sleep apnea. 5. Generalized pustular psoriasis. 6. History of fibroid tumors. 7. Left knee arthroplasty placed August,, revised in 2009. 8. Appendectomy. 9. Tonsillectomy. 10. Lumpectomy. 11. Total abdominal hysterectomy and salpingo-oophorectomy. ALLERGIES NAPROSYN, LATEX, CODEINE. MEDICATIONS Current Medications Medications (Trade) Dose Ordered Sig/Ania Route PRN Reason Start Time Stop Time Status Last Admin Dose Admin Sodium Chloride (NS Flush) 2 ml UNSCH PRN IV FLUSH FLUSH AFTER USING IV ACCESS 02/26/17 19:00 Sodium Chloride (NS Flush) 2 ml BID IV FLUSH 02/26/17 21:00 02/28/17 09:00 Acetaminophen (Tylenol) 650 mg Q4H PRN PO TEMP > 100.4 02/26/17 19:00 Ondansetron HCl (Zofran Inj) 4 mg Q6H PRN IVP NAUSEA OR VOMITING 02/26/17 19:00 Temazepam (Restoril) 15 mg HS PRN PO INSOMNIA 02/26/17 19:00 Naloxone HCl (Narcan Inj) 0.4 mg UNSCH PRN IV SEE LABEL COMMENTS 02/26/17 19:00 Magnesium Hydroxide (Milk Of Magnesia Liq) 30 ml Q12H PRN PO MILD - MODERATE CONSTIPATION 02/26/17 19:00 Allopurinol (Zyloprim) 100 mg BID PO 02/26/17 21:00 02/28/17 09:47 Aspirin (Aspirin) 325 mg DAILY PO 02/27/17 09:00 02/28/17 09:47 Lorazepam (Ativan) 1 mg BID PRN PO ANXIETY 02/26/17 19:00 02/27/17 22:24 Triamterene/HCTZ (Maxzide 37.5-25 Mg) 1 tab DAILY PO 02/27/17 09:00 02/28/17 09:51 Clonidine (Catapres) 0.2 mg Q6H PRN PO SBP above 160 02/26/17 19:00 Enalaprilat (Vasotec Inj) 1.25 mg Q6H PRN IV sbp above 160 02/26/17 19:00 Acetaminophen/ Hydrocodone Bitart ([place] 5-325 Mg) 1 tab Q6H PRN PO pain 1-10 02/26/17 19:00 Ibuprofen (Motrin) 400 mg Q8H PRN PO PAIN SCALE 1 TO 10 02/26/17 22:45 02/27/17 22:24 Nystatin (Mycostatin Powder) 1 applic Q8HR TOPICAL 02/27/17 14:45 02/27/17 22:00 Docusate Sodium (Colace) 100 mg BID PO 02/27/17 15:00 02/28/17 09:47 Bisacodyl (Dulcolax Supp) 10 mg DAILY PRN RECTAL moderate constipation 02/27/17 15:00 Diphenhydramine HCl (Benadryl) 25 mg Q4H PRN PO ITCHING 02/27/17 23:00 02/27/17 23:20 OBJECTIVE: Vital Signs Date Time Temp Pulse Resp B/P Pulse Ox O2 Delivery O2 Flow Rate FiO2 02/28/17 08:00 96.8 74 16 131/63 99 02/28/17 04:00 96.7 72 18 140/61 98 02/28/17 00:18 18 02/28/17 00:00 96.8 73 18 123/58 98 02/27/17 20:00 97.4 79 18 103/51 97 02/27/17 16:00 96.1 82 16 132/60 99 02/27/17 12:00 96.6 77 16 136/64 97 02/27/17 02/27/17 02/28/17 15:00 23:00 07:00 Intake Total 920 ml 240 ml 1061 ml Balance 920 ml 240 ml 1061 ml Intake Oral 720 ml 240 ml 480 ml IV Total 200 ml 581 ml # Voids 2 3 2 Laboratory Tests Test 02/26/17 02/27/17 16:45 05:40 White Blood Count 16.6 TH/MM3 15.9 TH/MM3 Red Blood Count 4.13 MIL/MM3 4.07 MIL/MM3 Hemoglobin 11.5 GM/DL 11.4 GM/DL Hematocrit 37.1 % 36.4 % Mean Corpuscular Volume 89.7 FL 89.3 FL Mean Corpuscular Hemoglobin 28.0 PG 28.1 PG Mean Corpuscular Hemoglobin 31.2 % 31.5 % Concent Red Cell Distribution Width 17.0 % 16.9 % Platelet Count 273 TH/MM3 248 TH/MM3 Mean Platelet Volume 8.1 FL 8.1 FL Neutrophils (%) (Auto) 79.5 % 90.6 % Lymphocytes (%) (Auto) 11.5 % 7.8 % Monocytes (%) (Auto) 6.9 % 1.4 % Eosinophils (%) (Auto) 1.9 % 0.1 % Basophils (%) (Auto) 0.2 % 0.1 % Neutrophils # (Auto) 13.2 TH/MM3 14.4 TH/MM3 Lymphocytes # (Auto) 1.9 TH/MM3 1.2 TH/MM3 Monocytes # (Auto) 1.1 TH/MM3 0.2 TH/MM3 Eosinophils # (Auto) 0.3 TH/MM3 0.0 TH/MM3 Basophils # (Auto) 0.0 TH/MM3 0.0 TH/MM3 CBC Comment DIFF FINAL DIFF FINAL Differential Comment Laboratory Tests Test 02/26/17 02/26/17 02/27/17 02/27/17 16:45 17:00 00:10 05:40 Sodium Level 138 MEQ/L 136 MEQ/L Potassium Level 4.1 MEQ/L 4.2 MEQ/L Chloride Level 106 MEQ/L 106 MEQ/L Carbon Dioxide Level 25.4 MEQ/L 22.2 MEQ/L Anion Gap 7 MEQ/L 8 MEQ/L Blood Urea Nitrogen 20 MG/DL 23 MG/DL Creatinine 1.39 MG/DL 1.36 MG/DL Estimat Glomerular Filtration 36 ML/MIN 37 ML/MIN Rate Random Glucose 88 MG/DL 163 MG/DL Calcium Level 8.6 MG/DL 8.4 MG/DL Total Bilirubin 0.6 MG/DL Aspartate Amino Transf 18 U/L (AST/SGOT) Alanine Aminotransferase 17 U/L (ALT/SGPT) Alkaline Phosphatase 94 U/L Total Protein 6.5 GM/DL Albumin 2.8 GM/DL Lactic Acid Level 2.1 mmol/L 1.1 mmol/L Microbiology Date/Time Procedure Status Source Growth 02/26/17 16:50 Aerobic Blood Culture - Preliminary Resulted Blood Peripheral NO GROWTH IN 1 DAY 02/26/17 16:50 Anaerobic Blood Culture - Preliminary Resulted Blood Peripheral NO GROWTH IN 1 DAY 02/26/17 17:00 Aerobic Blood Culture - Preliminary Resulted Blood Peripheral NO GROWTH IN 1 DAY 02/26/17 17:00 Anaerobic Blood Culture - Preliminary Resulted Blood Peripheral NO GROWTH IN 1 DAY PHYSICAL EXAMINATION GENERAL: No acute distress. She is awake and alert and oriented. She has mild discomfort from itching at the skin rash. HEENT: No icterus. No conjunctival erythema. Oropharynx - moist mucosa without visible lesions. No thrush. NECK: Supple without adenopathy. LUNGS: Clear. HEART: Regular rate and rhythm without murmurs, rubs or gallops. ABDOMEN: Bowel sounds present, soft, nontender, obese. EXTREMITIES: No clubbing or cyanosis or edema. SKIN: Diffuse maculopapular rash including the back, arms, chest, thighs, buttocks, groin with petechial component. The patient has confluent erythematous areas involving the buttock and the thighs at the abdominal fold areas The areas of the hands and palms have less pustular changes at the surface. There are no visible areas of the soles of the feet and there is less involvement of the tibias, and also there is very little involvement of the face. NEUROLOGIC: No gross focal findings. PSYCHIATRIC: The patient is calm and pleasant and cooperative. IMPRESSION Diffuse skin rash which very likely is due to allergic reaction to sulfa in a patient who has been treated with Bactrim before the onset of the diffuse rash. Looks a little bit improved. RECOMMENDATIONS 1. Observe without antibiotics. 2. Monitor the rash and monitor the temperature. 3. I would not give any additional antibiotics at this time. 4. Will apply hydrocortisone cream to arms only to see effect. 5. May want to consider a skin biopsy if there is not sufficient improvement over the next couple of days. Juan David Worrell MD Feb 28, 2017 11:02
[2017-02-28 12:00] VITALS: BP 158/70; PULSE 70; RESP 16; TEMP 97.7; O2SAT 97
--- NOTE | 2017-02-28 13:55 | HHI.PR ---
Subjective Remarks No new complaints. No fever. No chills. Objective Vitals Vital Signs Date Time Temp Pulse Resp B/P Pulse Ox O2 Delivery O2 Flow Rate FiO2 02/28/17 12:00 97.7 70 16 158/70 97 02/28/17 08:00 96.8 74 16 131/63 99 02/28/17 04:00 96.7 72 18 140/61 98 02/28/17 00:18 18 02/28/17 00:00 96.8 73 18 123/58 98 02/27/17 20:00 97.4 79 18 103/51 97 02/27/17 16:00 96.1 82 16 132/60 99 02/27/17 02/27/17 02/28/17 15:00 23:00 07:00 Intake Total 920 ml 240 ml 1061 ml Balance 920 ml 240 ml 1061 ml Intake Oral 720 ml 240 ml 480 ml IV Total 200 ml 581 ml # Voids 2 3 2 Result Diagram: 02/27/17 0540 02/27/17 0540 Imaging Last Impressions Chest X-Ray 02/26/17 1851 Signed Impressions: Service Date/Time: Sunday, February 26, 2017 19:02 - CONCLUSION: No acute disease. Néstor Diana MD FACR Objective Remarks GENERAL: This is a well-nourished, well-developed patient, in no apparent distress. CARDIOVASCULAR: Regular rate and rhythm without murmurs, gallops, or rubs. RESPIRATORY: Clear to auscultation. Breath sounds equal bilaterally. No wheezes , rales, or rhonchi. GASTROINTESTINAL: Abdomen soft, non-tender, nondistended. Normal active bowel sounds MUSCULOSKELETAL: Extremities without clubbing, cyanosis, or edema. NEURO: Alert & Oriented x4 to person, place, time, situation. Moves all ext x4 skin: diffuse macular mash, ant/post trunk,legs, arms, hands including the palms. A/P Problem List: (1) Skin rash Status: Acute Plan: - Comanagement with infectious disease - I have reviewed the last available note from dermatology (02/25/17) in the [facility] EHR - Patient diagnosed with 1) Dyshidrotic Eczema 2) drug eruption rash 3) Intertrigio - Dermatology had recommended steroid cream, stopping Bactrim, starting doxycycline for 3 weeks - Case d/w ID, Dr. Pandey, (02/27/17). Dr. Pandey feels the predominant issue is drug eruption rash. - No antibiotics at this time - nystatin powder under patient's breast for tinea - Observe - Mild leukocytosis, reactive? - Repeat CBC in a.m. - No fever since 5 PM on 02/26/2017 - Observe - anticipate d/c to home in 1-2 days 02/28/17 - pt seen and examined. - continue treatment plan as outlined above. (2) Gout Status: Chronic Plan: - allopurinol (3) HTN (hypertension) Status: Chronic Plan: - Stable - Continue triamterene hydrochlorothiazide (4) OA (osteoarthritis) Status: Acute Plan: - ibuprofen prn (5) JUDITH (obstructive sleep apnea) Status: Acute Plan: - use home CPAP at night. Problem Qualifiers (1) Gout: Qualified Code: M10.9 - Gout, unspecified cause, unspecified chronicity, unspecified site (2) HTN (hypertension): Qualified Code: I10 - Essential hypertension (3) OA (osteoarthritis): Beau Cortez DO Feb 28, 2017 13:55
[2017-02-28] MEDS: diphenhydrAMINE HCL 25 MG CAP PO PRN (15:20)
[2017-02-28 16:00] VITALS: BP 157/70; PULSE 73; RESP 22; TEMP 97.3; O2SAT 98
[2017-02-28] MEDS: HYDROCORTISONE 2.5% CREAM 30 GM TOPICAL SCH ×2 (17:14→22:52)
[2017-02-28] MEDS: IBUPROFEN 400 MG TAB PO PRN (17:45)
[2017-02-28 20:00] VITALS: BP 144/75; PULSE 91; RESP 18; TEMP 96.3; O2SAT 98
[2017-03-01] VITALS (7 sets, daily range): BP systolic 108–162; BP diastolic 51–73; PULSE 71–90; RESP 16–20; TEMP 96.5–97; O2SAT 95–100
[2017-03-01] MEDS: NYSTATIN 100,000 U/GM PWD 15 GM BTL TOPICAL SCH ×3 (06:00→18:00)
[2017-03-01] MEDS: ALLOPURINOL 100 MG TAB PO SCH ×2 (08:59→21:00)
[2017-03-01] MEDS: ASPIRIN 325 MG TAB PO SCH (08:59)
[2017-03-01] MEDS: TRIAMTERENE/HCTZ 37.5 MG/25 MG TAB PO SCH (08:59)
[2017-03-01] MEDS: DOCUSATE SODIUM 100 MG CAP PO SCH ×2 (08:59→20:59)
[2017-03-01] MEDS: SODIUM CHLORIDE 0.9% FLUSH 10 ML FLUSH IV FLUSH SCH ×2 (09:00→20:59)
[2017-03-01] MEDS: HYDROCORTISONE 2.5% CREAM 30 GM TOPICAL SCH ×2 (09:00→21:05)
--- NOTE | 2017-03-01 09:14 | HHI.PR ---
Subjective Remarks rash might be a little better in areas. but thinks her right hand/wrist is more blistered. Objective Vitals erythema axilla,under breasts, groin bilaterally patchy erythematous maculopapular rash over chest/abdomen/arms/legs. right hand with areas of hemorrhagic blistering heart reg lung cta abd s/nt ext no pitting Vital Signs Date Time Temp Pulse Resp B/P Pulse Ox O2 Delivery O2 Flow Rate FiO2 03/01/17 07:30 96.8 72 20 144/63 100 03/01/17 05:30 96.8 71 16 108/51 99 03/01/17 00:00 96.5 82 18 162/70 95 02/28/17 20:00 96.3 91 18 144/75 98 02/28/17 16:00 97.3 73 22 157/70 98 02/28/17 12:00 97.7 70 16 158/70 97 02/28/17 02/28/17 03/01/17 15:00 23:00 07:00 Intake Total 1200 ml 240 ml Output Total 0 ml Balance 1200 ml 240 ml Intake Oral 1200 ml 240 ml Output Stool Total 0 ml # Voids 5 2 Result Diagram: 02/27/17 0540 02/27/17 0540 Imaging Last Impressions Chest X-Ray 02/26/17 1851 Signed Impressions: Service Date/Time: Sunday, February 26, 2017 19:02 - CONCLUSION: No acute disease. Néstor Diana MD FACR A/P Problem List: (1) Skin rash Status: Acute Plan: - Comanagement with infectious disease - I have reviewed the last available note from dermatology (02/25/17) in the [facility] EHR - Patient diagnosed with 1) Dyshidrotic Eczema 2) drug eruption rash 3) Intertrigio - Dermatology had recommended steroid cream, stopping Bactrim, starting doxycycline for 3 weeks - Case d/w ID, Dr. Pandey, (02/27/17). Dr. Pandey feels the predominant issue is drug eruption rash. - No antibiotics at this time - nystatin powder axilla/breast/skin folds/groin - cont topical \steroid and give 24hr iv steroid today - will discuss with ID if no improvement whether topical abx necessary in certain areas. (2) Gout Status: Chronic Plan: - allopurinol (3) HTN (hypertension) Status: Chronic Plan: - Stable - Continue triamterene hydrochlorothiazide (4) OA (osteoarthritis) Status: Chronic Plan: - ibuprofen prn (5) JUDITH (obstructive sleep apnea) Status: Chronic Plan: - use home CPAP at night. (6) CKD (chronic kidney disease) stage 3, GFR 30-59 ml/min Status: Chronic Problem Qualifiers (1) Gout: Qualified Code: M10.9 - Gout, unspecified cause, unspecified chronicity, unspecified site (2) HTN (hypertension): Qualified Code: I10 - Essential hypertension (3) OA (osteoarthritis): Selwyn Sam MD Mar 01, 2017 09:14
[2017-03-01 10:20] LABS: AUTOMATED NEUTROPHIL # 8.1 TH/MM3 (1.8-7.7); BASOPHIL # 0.1 TH/MM3 (0-0.2); BASOPHIL % 0.6 % (0.0-2.0); EOSINOPHIL # 0.6 TH/MM3 (0-0.4); EOSINOPHIL % 4.8 % (0.0-4.0); HEMATOCRIT 35.6 % (35.0-46.0); HEMO FLAGS DIFF FINAL; LYMPHOCYTE # 2.3 TH/MM3 (1.0-4.8); MEAN CORPUSCULAR HGB CONC 31.5 % (32.0-36.0); MONO % 7.8 % (0.0-8.0); NEUT % 67.8 % (16.0-70.0); PLATELET COUNT 315 TH/MM3 (150-450); RED CELL DISTRIBUTION WIDTH 16.6 % (11.6-17.2); WHITE BLOOD COUNT 11.9 TH/MM3 (4.0-11.0)
[2017-03-01] MEDS: methylPREDNISolone SOD SUCC 125 MG/2 ML VIAL IV PUSH SCH ×3 (10:35→21:06)
--- NOTE | 2017-03-01 11:35 | HHI.IDPN ---
Note Infectious Disease Note Patient notes the skin at the hands are now painful. Denies chills Afebrile. No SOB. Presented to the emergency department with diffuse rash all over her body. The patient was being followed by a materials research engineer for a skin condition and she was put on Bactrim six days ago. She stated that she took the Bactrim for three days and then she woke up with a sudden rash all over the body. The rash was noted to be different from the previous rash that she had seen the materials research engineer for. She stopped taking the Bactrim and she noted that the rash was weeping for two days and then she presented to the emergency department for evaluation. PAST MEDICAL HISTORY 1. Arthritis. 2. Hypercholesteremia. 3. Hypertension. 4. Sleep apnea. 5. Generalized pustular psoriasis. 6. History of fibroid tumors. 7. Left knee arthroplasty placed August,, revised in 2009. 8. Appendectomy. 9. Tonsillectomy. 10. Lumpectomy. 11. Total abdominal hysterectomy and salpingo-oophorectomy. ALLERGIES NAPROSYN, LATEX, CODEINE. MEDICATIONS Current Medications Medications (Trade) Dose Ordered Sig/Ania Route PRN Reason Start Time Stop Time Status Last Admin Dose Admin Sodium Chloride (NS Flush) 2 ml UNSCH PRN IV FLUSH FLUSH AFTER USING IV ACCESS 02/26/17 19:00 Sodium Chloride (NS Flush) 2 ml BID IV FLUSH 02/26/17 21:00 03/01/17 09:00 Acetaminophen (Tylenol) 650 mg Q4H PRN PO TEMP > 100.4 02/26/17 19:00 Ondansetron HCl (Zofran Inj) 4 mg Q6H PRN IVP NAUSEA OR VOMITING 02/26/17 19:00 Temazepam (Restoril) 15 mg HS PRN PO INSOMNIA 02/26/17 19:00 02/28/17 22:50 Naloxone HCl (Narcan Inj) 0.4 mg UNSCH PRN IV SEE LABEL COMMENTS 02/26/17 19:00 Magnesium Hydroxide (Milk Of Magnesia Liq) 30 ml Q12H PRN PO MILD - MODERATE CONSTIPATION 02/26/17 19:00 Allopurinol (Zyloprim) 100 mg BID PO 02/26/17 21:00 03/01/17 08:59 Aspirin (Aspirin) 325 mg DAILY PO 02/27/17 09:00 03/01/17 08:59 Lorazepam (Ativan) 1 mg BID PRN PO ANXIETY 02/26/17 19:00 02/27/17 22:24 Triamterene/HCTZ (Maxzide 37.5-25 Mg) 1 tab DAILY PO 02/27/17 09:00 03/01/17 08:59 Clonidine (Catapres) 0.2 mg Q6H PRN PO SBP above 160 02/26/17 19:00 02/28/17 23:34 Enalaprilat (Vasotec Inj) 1.25 mg Q6H PRN IV sbp above 160 02/26/17 19:00 Acetaminophen/ Hydrocodone Bitart ([place] 5-325 Mg) 1 tab Q6H PRN PO pain 1-10 02/26/17 19:00 Ibuprofen (Motrin) 400 mg Q8H PRN PO PAIN SCALE 1 TO 10 02/26/17 22:45 02/28/17 17:45 Docusate Sodium (Colace) 100 mg BID PO 02/27/17 15:00 03/01/17 08:59 Bisacodyl (Dulcolax Supp) 10 mg DAILY PRN RECTAL moderate constipation 02/27/17 15:00 Diphenhydramine HCl (Benadryl) 25 mg Q4H PRN PO ITCHING 02/27/17 23:00 02/28/17 15:20 Hydrocortisone ([place] 2.5% Cream) 1 applic BID TOPICAL 02/28/17 13:00 03/01/17 09:00 Nystatin (Mycostatin Powder) 1 applic Q8H TOPICAL 03/01/17 10:00 03/01/17 10:00 Methylprednisolone Sodium Succinate (SoluMEDROL INJ) 60 mg Q6H IV PUSH 03/01/17 10:00 03/02/17 04:01 03/01/17 10:35 OBJECTIVE: Vital Signs Date Time Temp Pulse Resp B/P Pulse Ox O2 Delivery O2 Flow Rate FiO2 03/01/17 07:30 96.8 72 20 144/63 100 03/01/17 05:30 96.8 71 16 108/51 99 03/01/17 00:00 96.5 82 18 162/70 95 02/28/17 20:00 96.3 91 18 144/75 98 02/28/17 16:00 97.3 73 22 157/70 98 02/28/17 12:00 97.7 70 16 158/70 97 02/28/17 02/28/17 03/01/17 15:00 23:00 07:00 Intake Total 1200 ml 240 ml Output Total 0 ml Balance 1200 ml 240 ml Intake Oral 1200 ml 240 ml Output Stool Total 0 ml # Voids 5 2 Laboratory Tests Test 03/01/17 09:18 White Blood Count 11.9 TH/MM3 Red Blood Count 4.00 MIL/MM3 Hemoglobin 11.2 GM/DL Hematocrit 35.6 % Mean Corpuscular Volume 89.0 FL Mean Corpuscular Hemoglobin 28.0 PG Mean Corpuscular Hemoglobin 31.5 % Concent Red Cell Distribution Width 16.6 % Platelet Count 315 TH/MM3 Mean Platelet Volume 7.9 FL Neutrophils (%) (Auto) 67.8 % Lymphocytes (%) (Auto) 19.0 % Monocytes (%) (Auto) 7.8 % Eosinophils (%) (Auto) 4.8 % Basophils (%) (Auto) 0.6 % Neutrophils # (Auto) 8.1 TH/MM3 Lymphocytes # (Auto) 2.3 TH/MM3 Monocytes # (Auto) 0.9 TH/MM3 Eosinophils # (Auto) 0.6 TH/MM3 Basophils # (Auto) 0.1 TH/MM3 CBC Comment DIFF FINAL Differential Comment Microbiology Date/Time Procedure Status Source Growth 02/26/17 16:50 Aerobic Blood Culture - Preliminary Resulted Blood Peripheral NO GROWTH IN 3 DAYS 02/26/17 16:50 Anaerobic Blood Culture - Preliminary Resulted Blood Peripheral NO GROWTH IN 3 DAYS 02/26/17 17:00 Aerobic Blood Culture - Preliminary Resulted Blood Peripheral NO GROWTH IN 3 DAYS 02/26/17 17:00 Anaerobic Blood Culture - Preliminary Resulted Blood Peripheral NO GROWTH IN 3 DAYS PHYSICAL EXAMINATION GENERAL: No acute distress. She is awake and alert and oriented. HEENT: No icterus. No conjunctival erythema. Oropharynx - moist mucosa without visible lesions. No thrush. NECK: Supple without adenopathy. LUNGS: Clear. HEART: Regular rate and rhythm without murmurs, rubs or gallops. ABDOMEN: Bowel sounds present, soft, nontender, obese. EXTREMITIES: No clubbing or cyanosis or edema. SKIN: Diffuse maculopapular rash including the back, arms, chest, thighs, buttocks, groin with petechial component. The patient has confluent erythematous areas involving the buttock and the thighs and at the abdominal fold areas The areas of the hands and palms have more pustular changes over the areas of petechiae and some have coalesced. There are no visible areas of the soles of the feet and there is less involvement of the tibias, and also there is very little involvement of the face. NEUROLOGIC: No gross focal findings. PSYCHIATRIC: The patient is calm and pleasant and cooperative. IMPRESSION Diffuse skin rash which very likely is due to allergic reaction to sulfa in a patient who has been treated with Bactrim before the onset of the diffuse rash. It appears to be more pustular and painful today. RECOMMENDATIONS 1. consult surgery to do a biopsy for pathology evaluation. (Ordered). 2. Monitor without antibiotics. 3. Okay to give steroids. Juan David Worrell MD Mar 01, 2017 11:35
[2017-03-01] MEDS: IBUPROFEN 400 MG TAB PO PRN (13:00)
[2017-03-01] MEDS: LORazepam 1 MG TAB PO PRN (23:21)
[2017-03-02] VITALS (8 sets, daily range): BP systolic 125–156; BP diastolic 59–81; PULSE 71–89; RESP 17–20; TEMP 96.2–97.7; O2SAT 97–98
[2017-03-02] MEDS: methylPREDNISolone SOD SUCC 125 MG/2 ML VIAL IV PUSH SCH ×3 (03:24→18:00)
[2017-03-02] MEDS: NYSTATIN 100,000 U/GM PWD 15 GM BTL TOPICAL SCH ×3 (03:25→18:00)
[2017-03-02] MEDS: SODIUM CHLORIDE 0.9% FLUSH 10 ML FLUSH IV FLUSH SCH ×2 (08:23→20:26)
[2017-03-02] MEDS: HYDROCORTISONE 2.5% CREAM 30 GM TOPICAL SCH ×2 (08:23→20:26)
[2017-03-02] MEDS: ASPIRIN 325 MG TAB PO SCH (08:23)
[2017-03-02] MEDS: DOCUSATE SODIUM 100 MG CAP PO SCH ×2 (08:23→20:25)
[2017-03-02] MEDS: ALLOPURINOL 100 MG TAB PO SCH ×2 (08:23→20:26)
[2017-03-02] MEDS: TRIAMTERENE/HCTZ 37.5 MG/25 MG TAB PO SCH (08:29)
--- NOTE | 2017-03-02 09:36 | HHI.PR ---
Subjective Remarks thinks her acute rash on arms is a little better. says the rash in axilla/groin are chronic. Objective Vitals maculopapular rash with some purplish blistering over hands/forearms worse on the right. looks improved with drying of the lesions. erythema of axillar/skin and groin folds. Vital Signs Date Time Temp Pulse Resp B/P Pulse Ox O2 Delivery O2 Flow Rate FiO2 03/02/17 04:01 75 03/02/17 04:00 97.6 77 18 128/60 97 03/02/17 00:12 71 03/02/17 00:00 97.7 84 17 127/60 97 03/01/17 20:06 83 03/01/17 20:00 97.0 90 18 138/73 97 03/01/17 15:30 96.8 84 20 135/66 96 03/01/17 11:30 96.8 77 20 136/67 100 03/01/17 03/01/17 03/02/17 15:00 23:00 07:00 Intake Total 360 ml Balance 360 ml Intake Oral 360 ml # Voids 3 1 # Bowel Movements 0 Result Diagram: 03/01/17 0918 02/27/17 0540 Imaging Last Impressions Chest X-Ray 02/26/17 1851 Signed Impressions: Service Date/Time: Sunday, February 26, 2017 19:02 - CONCLUSION: No acute disease. Néstor Diana MD FACR A/P Problem List: (1) Skin rash Status: Acute Plan: - Comanagement with infectious disease - I have reviewed the last available note from dermatology (02/25/17) in the [facility] EHR - Patient diagnosed with 1) Dyshidrotic Eczema 2) drug eruption rash 3) Intertrigio - Dermatology had recommended steroid cream, stopping Bactrim, starting doxycycline for 3 weeks - Case d/w ID, Dr. Katherin Pandey feels the predominant issue is drug eruption rash. - No antibiotics at this time - nystatin powder axilla/breast/skin folds/groin - cont topical \steroid and give another 24hr iv steroid - will discuss with ID if no improvement whether topical abx necessary in certain areas. (2) Gout Status: Chronic Plan: - allopurinol (3) HTN (hypertension) Status: Chronic Plan: - Stable - Continue triamterene hydrochlorothiazide (4) OA (osteoarthritis) Status: Chronic Plan: - ibuprofen prn (5) JUDITH (obstructive sleep apnea) Status: Chronic Plan: - use home CPAP at night. (6) CKD (chronic kidney disease) stage 3, GFR 30-59 ml/min Status: Chronic Problem Qualifiers (1) Gout: Qualified Code: M10.9 - Gout, unspecified cause, unspecified chronicity, unspecified site (2) HTN (hypertension): Qualified Code: I10 - Essential hypertension (3) OA (osteoarthritis): Selwyn Sam MD Mar 02, 2017 09:36
--- NOTE | 2017-03-02 12:55 | HHI.IDPN ---
Note Infectious Disease Note Patient has less pain at the hands. Denies chills Afebrile. No SOB. Lesions at the hands and arms are drying and pustules have disappeared. Presented to the emergency department with diffuse rash all over her body. The patient was being followed by a street car inspector for a skin condition and she was put on Bactrim six days ago. She stated that she took the Bactrim for three days and then she woke up with a sudden rash all over the body. The rash was noted to be different from the previous rash that she had seen the street car inspector for. She stopped taking the Bactrim and she noted that the rash was weeping for two days and then she presented to the emergency department for evaluation. PAST MEDICAL HISTORY 1. Arthritis. 2. Hypercholesteremia. 3. Hypertension. 4. Sleep apnea. 5. Generalized pustular psoriasis. 6. History of fibroid tumors. 7. Left knee arthroplasty placed August,, revised in 2009. 8. Appendectomy. 9. Tonsillectomy. 10. Lumpectomy. 11. Total abdominal hysterectomy and salpingo-oophorectomy. ALLERGIES NAPROSYN, LATEX, CODEINE. MEDICATIONS Current Medications Medications (Trade) Dose Ordered Sig/Ania Route PRN Reason Start Time Stop Time Status Last Admin Dose Admin Sodium Chloride (NS Flush) 2 ml UNSCH PRN IV FLUSH FLUSH AFTER USING IV ACCESS 02/26/17 19:00 Sodium Chloride (NS Flush) 2 ml BID IV FLUSH 02/26/17 21:00 03/02/17 08:23 Acetaminophen (Tylenol) 650 mg Q4H PRN PO TEMP > 100.4 02/26/17 19:00 Ondansetron HCl (Zofran Inj) 4 mg Q6H PRN IVP NAUSEA OR VOMITING 02/26/17 19:00 Temazepam (Restoril) 15 mg HS PRN PO INSOMNIA 02/26/17 19:00 02/28/17 22:50 Naloxone HCl (Narcan Inj) 0.4 mg UNSCH PRN IV SEE LABEL COMMENTS 02/26/17 19:00 Magnesium Hydroxide (Milk Of Magnesia Liq) 30 ml Q12H PRN PO MILD - MODERATE CONSTIPATION 02/26/17 19:00 Allopurinol (Zyloprim) 100 mg BID PO 02/26/17 21:00 03/02/17 08:23 Aspirin (Aspirin) 325 mg DAILY PO 02/27/17 09:00 03/02/17 08:23 Lorazepam (Ativan) 1 mg BID PRN PO ANXIETY 02/26/17 19:00 03/01/17 23:21 Triamterene/HCTZ (Maxzide 37.5-25 Mg) 1 tab DAILY PO 02/27/17 09:00 03/02/17 08:29 Clonidine (Catapres) 0.2 mg Q6H PRN PO SBP above 160 02/26/17 19:00 02/28/17 23:34 Enalaprilat (Vasotec Inj) 1.25 mg Q6H PRN IV sbp above 160 02/26/17 19:00 Acetaminophen/ Hydrocodone Bitart (Wiggins 5-325 Mg) 1 tab Q6H PRN PO pain 1-10 02/26/17 19:00 Ibuprofen (Motrin) 400 mg Q8H PRN PO PAIN SCALE 1 TO 10 02/26/17 22:45 03/01/17 13:00 Docusate Sodium (Colace) 100 mg BID PO 02/27/17 15:00 03/02/17 08:23 Bisacodyl (Dulcolax Supp) 10 mg DAILY PRN RECTAL moderate constipation 02/27/17 15:00 Diphenhydramine HCl (Benadryl) 25 mg Q4H PRN PO ITCHING 02/27/17 23:00 02/28/17 15:20 Hydrocortisone (Eldecort 2.5% Cream) 1 applic BID TOPICAL 02/28/17 13:00 03/02/17 08:23 Nystatin (Mycostatin Powder) 1 applic Q8H TOPICAL 03/01/17 10:00 03/02/17 03:25 Methylprednisolone Sodium Succinate (SoluMEDROL INJ) 60 mg Q6HR IV PUSH 03/02/17 12:00 OBJECTIVE: Vital Signs Date Time Temp Pulse Resp B/P Pulse Ox O2 Delivery O2 Flow Rate FiO2 03/01/17 07:30 96.8 72 20 144/63 100 03/01/17 05:30 96.8 71 16 108/51 99 03/01/17 00:00 96.5 82 18 162/70 95 02/28/17 20:00 96.3 91 18 144/75 98 02/28/17 16:00 97.3 73 22 157/70 98 02/28/17 12:00 97.7 70 16 158/70 97 02/28/17 02/28/17 03/01/17 15:00 23:00 07:00 Intake Total 1200 ml 240 ml Output Total 0 ml Balance 1200 ml 240 ml Intake Oral 1200 ml 240 ml Output Stool Total 0 ml # Voids 5 2 Laboratory Tests Test 03/01/17 09:18 White Blood Count 11.9 TH/MM3 Red Blood Count 4.00 MIL/MM3 Hemoglobin 11.2 GM/DL Hematocrit 35.6 % Mean Corpuscular Volume 89.0 FL Mean Corpuscular Hemoglobin 28.0 PG Mean Corpuscular Hemoglobin 31.5 % Concent Red Cell Distribution Width 16.6 % Platelet Count 315 TH/MM3 Mean Platelet Volume 7.9 FL Neutrophils (%) (Auto) 67.8 % Lymphocytes (%) (Auto) 19.0 % Monocytes (%) (Auto) 7.8 % Eosinophils (%) (Auto) 4.8 % Basophils (%) (Auto) 0.6 % Neutrophils # (Auto) 8.1 TH/MM3 Lymphocytes # (Auto) 2.3 TH/MM3 Monocytes # (Auto) 0.9 TH/MM3 Eosinophils # (Auto) 0.6 TH/MM3 Basophils # (Auto) 0.1 TH/MM3 CBC Comment DIFF FINAL Differential Comment Microbiology Date/Time Procedure Status Source Growth 02/26/17 16:50 Aerobic Blood Culture - Preliminary Resulted Blood Peripheral NO GROWTH IN 3 DAYS 02/26/17 16:50 Anaerobic Blood Culture - Preliminary Resulted Blood Peripheral NO GROWTH IN 3 DAYS 02/26/17 17:00 Aerobic Blood Culture - Preliminary Resulted Blood Peripheral NO GROWTH IN 3 DAYS 02/26/17 17:00 Anaerobic Blood Culture - Preliminary Resulted Blood Peripheral NO GROWTH IN 3 DAYS PHYSICAL EXAMINATION GENERAL: No acute distress. She is awake and alert and oriented. HEENT: No icterus. No conjunctival erythema. Oropharynx - moist mucosa without visible lesions. No thrush. NECK: Supple without adenopathy. LUNGS: Clear. HEART: Regular rate and rhythm without murmurs, rubs or gallops. EXTREMITIES: No clubbing or cyanosis or edema. SKIN: Diffuse maculopapular rash including the back, arms, chest, thighs, buttocks, groin with petechial component. The patient has confluent erythematous areas involving the buttock and the thighs and at the abdominal fold areas The areas of the hands and palms have more grainy petechiae and some have coalesced. There are no visible areas of the soles of the feet and there is less involvement of the tibias, and also there is very little involvement of the face. skin at the outer ears are dry and flaky. NEUROLOGIC: No gross focal findings. PSYCHIATRIC: The patient is calm and pleasant and cooperative. IMPRESSION Diffuse skin rash which very likely is due to allergic reaction to sulfa in a patient who has been treated with Bactrim before the onset of the diffuse rash. It appears to be more pustular and painful today. Improving. RECOMMENDATIONS 1. Await biopsy. 2. Monitor without antibiotics. 3. Okay to give steroids. Probably can discharge tomorrow. Juan David Worrell MD Mar 02, 2017 12:55
[2017-03-02] MEDS: LORazepam 1 MG TAB PO PRN (22:28)
[2017-03-02] MEDS: IBUPROFEN 400 MG TAB PO PRN (22:30)
[2017-03-03] VITALS: BP 145/72; PULSE 71; PULSE 77; RESP 18; TEMP 97; O2SAT 98
[2017-03-03] MEDS: methylPREDNISolone SOD SUCC 125 MG/2 ML VIAL IV PUSH SCH ×2 (00:46→05:34)
[2017-03-03] MEDS: NYSTATIN 100,000 U/GM PWD 15 GM BTL TOPICAL SCH ×3 (00:47→12:38)
[2017-03-03 04:00] VITALS: BP 155/69; PULSE 59; PULSE 82; RESP 17; TEMP 97; O2SAT 95
[2017-03-03 08:00] VITALS: BP 158/80; PULSE 73; RESP 18; TEMP 97.4; O2SAT 18
[2017-03-03] MEDS ORDERED: NYST10007 TOPICAL (09:37)
[2017-03-03] MEDS ORDERED: TRIAM.1%T TOPICAL (09:39)
--- NOTE | 2017-03-03 09:40 | HHI.DCPOC ---
Discharge Care Plan Diagnosis: (1) Drug rash Goals to Promote Your Health * To prevent worsening of your condition and complications * To maintain your health at the optimal level Directions to Meet Your Goals Take your medications as prescribed Follow your dietary instruction Follow activity as directed Keep your appointments as scheduled Take your immunizations and boosters as scheduled If your symptoms worsen call your PCP, if no PCP go to Urgent Care Center or Emergency Room Smoking is Dangerous to Your Health. Avoid second hand smoke Call the 24-hour hour crisis hotline for domestic abuse at Selwyn Sam MD Mar 03, 2017 09:40
[2017-03-03] MEDS ORDERED: TRIAMCINOLONE ACETONIDE 0.1% OINT 15 GM TUBE TOPICAL ONE (09:45)
[2017-03-03] MEDS: DOCUSATE SODIUM 100 MG CAP PO SCH (09:46)
[2017-03-03] MEDS: ALLOPURINOL 100 MG TAB PO SCH (09:46)
[2017-03-03] MEDS: TRIAMTERENE/HCTZ 37.5 MG/25 MG TAB PO SCH (09:47)
[2017-03-03] MEDS: SODIUM CHLORIDE 0.9% FLUSH 10 ML FLUSH IV FLUSH SCH (09:47)
[2017-03-03] MEDS: ASPIRIN 325 MG TAB PO SCH (09:47)
[2017-03-03] MEDS: diphenhydrAMINE HCL 25 MG CAP PO PRN (12:41)
== END 2017-03-03 13:07 | disposition home or self-care (01) | DRG 607 ==
LOC: NEPD 15:30 → NEDA 18:18 → HOCB 20:31
PROVIDERS: ADMIT Hospitalist; ATTEND Hospitalist
DX: L27.1 Localized skin eruption due to drugs and medicaments taken internally (principal); Z68.42 Body mass index [BMI] 45.0-49.9, adult; N18.3 Chronic kidney disease, stage 3 (moderate); T37.0X5A Adverse effect of sulfonamides, initial encounter; F41.9 Anxiety disorder, unspecified; F32.9 Major depressive disorder, single episode, unspecified; M10.9 Gout, unspecified; G47.33 Obstructive sleep apnea (adult) (pediatric); E66.01 Morbid (severe) obesity due to excess calories; E78.5 Hyperlipidemia, unspecified; G25.81 Restless legs syndrome; L40.1 Generalized pustular psoriasis; M19.90 Unspecified osteoarthritis, unspecified site; I12.9 Hypertensive chronic kidney disease with stage 1 through stage 4 chronic kidney disease, or unspecified chronic kidney disease; G47.00 Insomnia, unspecified; K59.00 Constipation, unspecified
CPT/HCPCS: 71010; 76937; 80048; 80053; 81001; 83605; 85025; 87040; 87205; 90732; 93005; J2920; J2930; J7040

== ENCOUNTER 2017-11-02 13:25 | Emergency (ER) | payer MEDICARE ==
[2017-11-02] VITALS (7 sets, daily range): BP systolic 116–185; BP diastolic 53–106; PULSE 73–175; RESP 16–20; TEMP 97.8; O2SAT 96–100
[~2017-11-02 13:25] MED LIST changes: -ALLO100 PO; +ALLO100T PO; +ASPI-183 PO; -ASPI325T PO; -DYAZ PO; -FURO20TA PO; -LISI40TA PO; -LORA1TAB PO; +LORA1TAB12 PO; +NYST10007 TOPICAL; -POTA-243 PO; +TRIA37.5 PO; +TRIAM.1%T TOPICAL; -VITA500015 PO
[2017-11-02] MEDS ORDERED: ASPIRIN 81 MG CHEW TAB PO ONE (14:00)
[2017-11-02] MEDS ORDERED: SODIUM CHLORID 0.9% 500 ML INJ 500 ML IV ONE (14:00)
[2017-11-02] MEDS ORDERED: SODIUM CHLORIDE 0.9% FLUSH 10 ML FLUSH IVF PRN (14:00)
[2017-11-02] MEDS ORDERED: ADENOSINE IV SOLN 3 MG/ML 2 ML VIAL IV PUSH ONE (14:00)
[2017-11-02 14:35] LABS: AUTOMATED NEUTROPHIL # 10.2 TH/MM3 (1.8-7.7); BASOPHIL # 0.1 TH/MM3 (0-0.2); BASOPHIL % 0.5 % (0.0-2.0); EOSINOPHIL # 0.2 TH/MM3 (0-0.4); EOSINOPHIL % 1.3 % (0.0-4.0); HEMATOCRIT 39.9 % (35.0-46.0); HEMOGLOBIN 13.5 GM/DL (11.6-15.3); LYMPH % 21.4 % (9.0-44.0); LYMPHOCYTE # 3.1 TH/MM3 (1.0-4.8); MEAN CELL VOLUME 90.9 FL (80.0-100.0); MEAN CORPUSCULAR HEMOGLOBIN 30.8 PG (27.0-34.0); MEAN CORPUSCULAR HGB CONC 33.9 % (32.0-36.0); MEAN PLATELET VOLUME 8.1 FL (7.0-11.0); MONO % 6.1 % (0.0-8.0); MONOCYTE # 0.9 TH/MM3 (0-0.9); NEUT % 70.7 % (16.0-70.0); PLATELET COUNT 316 TH/MM3 (150-450); RED BLOOD COUNT 4.39 MIL/MM3 (4.00-5.30); RED CELL DISTRIBUTION WIDTH 16.3 % (11.6-17.2); WHITE BLOOD COUNT 14.5 TH/MM3 (4.0-11.0)
[2017-11-02 14:42] LABS: PROTHROMBIN TIME - PATIENT 10.5 SEC (9.8-11.6)
--- NOTE | 2017-11-02 14:44 | RADRPT ---
EXAM DATE/TIME: 11/02/2017 14:15 [facility] COMPARISON: CHEST SINGLE AP, February 26, 2017, 19:02. INDICATIONS : Increase heart rate today. Patient wearing a heart monitor left chest. MEDICAL HISTORY : Hypertension. SURGICAL HISTORY : Hysterectomy. Left knee surgery. Appendectomy ENCOUNTER: Initial ACUITY: 1 day PAIN SCORE: 0/10 LOCATION: Bilateral chest FINDINGS: A single view of the chest demonstrates the lungs to be symmetrically aerated without evidence of mas s, infiltrate or effusion. Left mid thoracic cardiac monitoring device. The cardiomediastinal contou rs are unremarkable. Osseous structures are intact. CONCLUSION: 1. No acute cardiopulmonary disease. Ankush Aguilar MD on November 02, 2017 at 14:42 Board Certified Radiologist. This report was verified electronically.
[2017-11-02 14:52] LABS: ALBUMIN 3.7 GM/DL (3.4-5.0); AST (GOT) 18 U/L (15-37); BICARBONATE 19.4 MEQ/L (21.0-32.0); BLOOD UREA NITROGEN 23 MG/DL (7-18); CALCIUM 9.4 MG/DL (8.5-10.1); CHLORIDE 105 MEQ/L (98-107); CREATININE 1.37 MG/DL (0.50-1.00); GLOMERULAR FILTRATION RATE 37 ML/MIN (>89); GLUCOSE,RANDOM 116 MG/DL (74-106); SODIUM (NA) 139 MEQ/L (136-145)
[2017-11-02 15:03] LABS: ALKALINE PHOSPHATASE 101 U/L (45-117); ALT (GPT) 22 U/L (10-53); TOTAL BILIRUBIN ADULT 0.4 MG/DL (0.2-1.0); TOTAL PROTEIN 7.7 GM/DL (6.4-8.2); TROPONIN I LESS THAN 0.02 NG/ML (0.02-0.05)
[2017-11-02] MEDS ORDERED: DILTIAZEM HCL 25 MG/5 ML VIAL IV PUSH ONE (15:15)
[2017-11-02] MEDS ORDERED: IODIXANOL 320 MG/ML 10 ML VIAL (for Rad CT) IVCONTRAST ONE (15:28)
--- NOTE | 2017-11-02 15:44 | RADRPT ---
EXAM DATE/TIME: 11/02/2017 15:21 [facility] COMPARISON: CT BRAIN W/O CONTRAST, June 28, 2015, 19:58. INDICATIONS : Shortness of breath. IV CONTRAST: 50 cc Visipaque (iodixanol) IV RADIATION DOSE: 23.33 CTDIvol (mGy) MEDICAL HISTORY : Cardiovascular disease. Hypertension. Deep venous thrombosis.Renal disease SURGICAL HISTORY : Hysterectomy. Cholecystectomy.Appendectomy. ENCOUNTER: Initial ACUITY: 1 day PAIN SCALE: 0/10 LOCATION: chest TECHNIQUE: Volumetric scanning of the chest was performed using a pulmonary embolism protocol MIP images were re constructed. Using automated exposure control and adjustment of the mA and/or kV according to patien t size, radiation dose was kept as low as reasonably achievable to obtain optimal diagnostic quality images. DICOM format image data is available electronically for review and comparison. Follow-up recommendations for detected pulmonary nodules are based at a minimum on nodule size and pa tient risk factors according to Fleischner Society Guidelines. FINDINGS: PULMONARY ARTERIES: No filling defects are seen in the pulmonary arteries through the segmental level. LUNGS: The exam demonstrates mild COPD changes. There is mild tubular bronchiectasis in the lower lobes. The exam also demonstrates 2 small nodules in the left upper lobe. Both measure approximately 3 mm. If t he patient has a negative smoking history no further followup is needed. If there is significant smok ing history followup CT examination in one year to document stability would be warranted. PLEURAE: There is no pleural thickening or pleural effusion. MEDIASTINUM: There is good visualization of the great vessels of the middle mediastinum. No evidence of mediastin al or hilar adenopathy/mass. MUSCULOSKELETAL: There are moderate degenerative changes throughout the thoracic spine. MISCELLANEOUS: The visualized upper abdominal organs demonstrate no acute abnormality. CONCLUSION: 1. COPD changes. 2. There are 2 small nodules both measuring approximately 3 mm on the left. Please see above. 3. Mild atherosclerotic plaquing in the coronary arteries. 4. No pulmonary embolus is identified. Dayton Diana MD on November 02, 2017 at 15:38 Board Certified Radiologist. This report was verified electronically.
[2017-11-02] MEDS ORDERED: BUPR100T4 PO (17:05)
[2017-11-02] MEDS ORDERED: METO25TA3 PO (17:41)
--- NOTE | 2017-11-02 17:41 | PD ---
HPI Chief Complaint: Cardiac Complaint Time Seen by Provider: 13:37 Travel History International Travel<30 days: No Contact w/Intl Traveler<30days: No Traveled to known affect area: No History of Present Illness HPI Patient is an 82-year-old female who comes in complaining of palpitations. She says that she has had occasional palpitations in the past, but it has been happening more frequently recently. She says that today she started to have the palpitations and noticed that her heart rate was in the 180s. Her son brought her in because of this. She says she has had shortness of breath for many years, this has not changed. She denies having any chest pain, nausea, vomiting. She is seeing Dr. Kumar of cardiology and is currently wearing a cardiac care unit nurse. Severity is moderate. PFSH Past Medical History Arthritis: Yes Asthma: No Autoimmune Disease: No Blood Disorders: No Bipolar Disorder: Yes Anxiety: Yes Heart Rhythm Problems: No Cancer: No Cardiovascular Problems: Yes High Cholesterol: Yes Chemotherapy: No Chest Pain: No Congestive Heart Failure: No COPD: No Cerebrovascular Accident: No Diabetes: No Diminished Hearing: No Deep Vein Thrombosis: Yes (09/28/2008) Endocrine: No Gastrointestinal Disorders: No GERD: No Gout: Yes Genitourinary: Yes Headaches: Yes Hepatitis: No Hiatal Hernia: No Hypertension: Yes Immune Disorder: No Implanted Vascular Access Dvce: Yes Kidney Stones: No Musculoskeletal: Yes Neurologic: Yes (vertigo) Psychiatric: No Reproductive: No Respiratory: Yes Myocardial Infarction: No Radiation Therapy: No Renal Failure: No Seizures: No Sleep Apnea: Yes (C-PAP @night) Ulcer: No Tetanus Vaccination: Unknown Influenza Vaccination: Yes Past Surgical History Abdominal Surgery: Yes (gall bladder removed) AICD: No Appendectomy: Yes Body Medical Devices: EYE LENS Cardiac Surgery: No Cholecystectomy: Yes Ear Surgery: No Endocrine Surgery: No Eye Surgery: Yes (OPAL CATARACT ) Genitourinary Surgery: No Gynecologic Surgery: Yes (hysterctomy) Hysterectomy: Yes Joint Replacement: Yes (LEFT PARTIAL KNEE REPLACEMENT 09/17/2008) Neurologic Surgery: No Oral Surgery: Yes (T&A CHILDHOOD) Pacemaker: No Thoracic Surgery: No Tonsillectomy: Yes Other Surgery: Yes (REVISED LEFT KNEE 2009) Social History Alcohol Use: No Tobacco Use: No Substance Use: No Allergies-Medications (Allergen,Severity, Reaction): Coded Allergies: codeine (Unverified Allergy, Severe, INCOHERENT, 04/06/17) sulfamethoxazole (Unverified Allergy, Intermediate, pustulated rash, ) trimethoprim (Unverified Allergy, Intermediate, pustulated rash, 04/06/17) latex (Unverified Allergy, Unknown, POSSIBLE ALLERGY, 04/06/17) naproxen (Unverified Allergy, Unknown, 04/06/17) Patient states 15 years ago at [facility]. Patient has been taking Ibuprofen at home for years and has not had any reactions. Reported Meds & Prescriptions Reported Meds & Active Scripts Active Metoprolol Tartrate 25 Mg Tab 25 Mg PO BID Triamcinolone Topical (Triamcinolone Acetonide) 0.1 % Oint 1 Applic TOPICAL QID 7 Days apply to rash over arms/hands Nystop Topical (Nystatin Topical) 100,000 Unit/Gm Powd 1 Applic TOPICAL Q8H 10 Days apply to skin folds abdomen/groin/under breasts Reported Bupropion HCl 100 Mg Tab 100 Mg PO HS Lorazepam 1 Mg Tab 1 Mg PO BID PRN Allopurinol 100 Mg Tab 100 Mg PO BID Triamterene-Hydrochlorothiazide 37.5-25 Mg Tab 1 Tab PO DAILY Review of Systems Except as stated in HPI: all other systems reviewed are Neg General / Constitutional: No: Fever, Chills Eyes: No: Blurred Vision HENT: No: Headaches, Lightheadedness Cardiovascular: Positive: Palpitations, No: Chest Pain or Discomfort Respiratory: No: Shortness of Breath Gastrointestinal: No: Nausea, Vomiting Musculoskeletal: No: Myalgias Skin: No Rash, No Change in Pigmentation Neurologic: No: Weakness, Dizziness, Syncope Physical Exam Narrative GENERAL: Awake and alert, no acute distress. SKIN: Focused skin assessment warm/dry. No wounds or signs of infection. HEAD: Atraumatic. Normocephalic. EYES: Pupils equal and round. No scleral icterus. Extraocular movements intact. ENT: Mucous membranes pink and moist. NECK: Trachea midline. No JVD. CARDIOVASCULAR: Tachycardia. No murmur appreciated. RESPIRATORY: No accessory muscle use. Clear to auscultation. Breath sounds equal bilaterally. GASTROINTESTINAL: Abdomen soft, non-tender, nondistended. MUSCULOSKELETAL: No obvious deformities. No clubbing. No cyanosis. No edema. NEUROLOGICAL: Awake and alert. No obvious cranial nerve deficits. Motor grossly within normal limits. Normal speech. PSYCHIATRIC: Appropriate mood and affect; insight and judgment normal. Data Data Last Documented VS Vital Signs Date Time Temp Pulse Resp B/P (MAP) Pulse Ox O2 Delivery O2 Flow Rate FiO2 11/02/17 17:50 11/02/17 17:00 75 16 100 Room Air 11/02/17 15:34 2.00 11/02/17 13:30 97.8 Orders Orders Ckmb (Isoenzyme) Profile (11/02/17 13:54) Complete Blood Count With Diff (11/02/17 13:54) Comprehensive Metabolic Panel (11/02/17 13:54) Prothrombin Time / Inr (Pt) (11/02/17 13:54) Act Partial Throm Time (Ptt) (11/02/17 13:54) Troponin I (11/02/17 13:54) Ecg Monitoring (11/02/17 13:54) Bilateral Bp Monitoring (11/02/17 13:54) Iv Access Insert/Monitor (11/02/17 13:54) Oximetry (11/02/17 13:54) Oxygen Administration (11/02/17 13:54) Aspirin Chew (Aspirin Chew) (11/02/17 14:00) Sodium Chloride 0.9% Flush (Ns Flush) (11/02/17 14:00) Sodium Chlorid 0.9% 500 Ml Inj (Ns 500 M (11/02/17 14:00) Adenosine Inj (Adenocard Inj) (11/02/17 14:00) Thyroid Stimulating Hormone (11/02/17 13:54) Chest, Single Ap (11/02/17 13:54) Diltiazem Inj (Cardizem Inj) (11/02/17 15:15) Ct Pulmonary Angiogram (11/02/17 15:04) Iodixanol 320 Inj (Rad Ct) (Visipaque 32 (11/02/17 15:28) Ed Discharge Order (11/02/17 17:41) Labs Laboratory Tests Test 11/02/17 14:00 White Blood Count 14.5 TH/MM3 Red Blood Count 4.39 MIL/MM3 Hemoglobin 13.5 GM/DL Hematocrit 39.9 % Mean Corpuscular Volume 90.9 FL Mean Corpuscular Hemoglobin 30.8 PG Mean Corpuscular Hemoglobin Concent 33.9 % Red Cell Distribution Width 16.3 % Platelet Count 316 TH/MM3 Mean Platelet Volume 8.1 FL Neutrophils (%) (Auto) 70.7 % Lymphocytes (%) (Auto) 21.4 % Monocytes (%) (Auto) 6.1 % Eosinophils (%) (Auto) 1.3 % Basophils (%) (Auto) 0.5 % Neutrophils # (Auto) 10.2 TH/MM3 Lymphocytes # (Auto) 3.1 TH/MM3 Monocytes # (Auto) 0.9 TH/MM3 Eosinophils # (Auto) 0.2 TH/MM3 Basophils # (Auto) 0.1 TH/MM3 CBC Comment DIFF FINAL Differential Comment Prothrombin Time 10.5 SEC Prothromb Time International Ratio 1.0 RATIO Activated Partial Thromboplast Time 28.8 SEC Blood Urea Nitrogen 23 MG/DL Creatinine 1.37 MG/DL Random Glucose 116 MG/DL Total Protein 7.7 GM/DL Albumin 3.7 GM/DL Calcium Level 9.4 MG/DL Alkaline Phosphatase 101 U/L Aspartate Amino Transf (AST/SGOT) 18 U/L Alanine Aminotransferase (ALT/SGPT) 22 U/L Total Bilirubin 0.4 MG/DL Sodium Level 139 MEQ/L Potassium Level 3.7 MEQ/L Chloride Level 105 MEQ/L Carbon Dioxide Level 19.4 MEQ/L Anion Gap 15 MEQ/L Estimat Glomerular Filtration Rate 37 ML/MIN Total Creatine Kinase 79 U/L Troponin I LESS THAN 0.02 NG/ML Thyroid Stimulating Hormone 3rd Gen 1.490 uIU/ML MDM Medical Decision Making Medical Screen Exam Complete: Yes Emergency Medical Condition: Yes Medical Record Reviewed: Yes Interpretation(s) Original ECG showed SVT at a rate of 164. After adenosine, EKG shows sinus tachycardia at a rate of 108, no ST elevation or depression. Differential Diagnosis SVT versus electrolyte abnormality versus A. fib versus PE versus hyperthyroidism. Narrative Course Patient is a 82 year old female who comes in complaining of palpitations. Exam shows tachycardia. IV established, labs sent. Given 6mg Adenosine with resolution of her SVT into sinus tachycardia. Labs show no acute abnormalities. Chest x-ray and CT show no acute abnormalities. Last [address] Angiography 11/02/17 1504 Signed Impressions: Service Date/Time: Thursday, November 02, 2017 15:21 - CONCLUSION: 1. COPD changes. 2. There are 2 small nodules both measuring approximately 3 mm on the left. Please see above. 3. Mild atherosclerotic plaquing in the coronary arteries. 4. No pulmonary embolus is identified. Dayton Diana MD Chest X-Ray 11/02/17 1354 Signed Impressions: Service Date/Time: Thursday, November 02, 2017 14:15 - CONCLUSION: 1. No acute cardiopulmonary disease. Ankush Aguilar MD Patient did have another episode of SVT, she was given a dose of Cardizem, which controlled her rate. I spoke with Dr. Desai of cardiology, he suggests sending her home on metoprolol , 25 mg twice a day and follow-up with her passenger flagman. She is advised of her results, advised follow-up with cardiology and her doctors. Advised return anytime for any worsening symptoms. Diagnosis Primary Impression: Tachycardia Patient Instructions: General Instructions, Tachycardia (ED) Additional Instructions: Follow up with your passenger flagman. Take the Metoprolol twice a day. Return to the ED for any worsening symptoms. Scripts Metoprolol Tartrate (Metoprolol Tartrate) 25 Mg Tab 25 MG PO BID, #60 TAB 0 Refills Prov: Elma Smith MD 11/02/17 Disposition: 01 DISCHARGE HOME Condition: Stable Elma Smith MD Nov 02, 2017 17:41
--- NOTE | 2017-11-10 09:03 | EKG ---
Date Performed: 11/02/2017 Time Performed: 13:44:06 PTAGE: 82 years EKG: SUPRAVENTRICULAR TACHYCARDIA ABNORMAL RHYTHM ECG INTERPRETATION BASED ON A DEFAULT AGE OF 4 0 YEARS NO PREVIOUS TRACING DOCTOR: dAam Vasques Interpretating Date/Time 11/10/2017 09:02:09
--- NOTE | 2017-11-10 09:03 | EKG ---
Date Performed: 11/02/2017 Time Performed: 13:48:06 PTAGE: 82 years EKG: Sinus rhythm WITH PAROXYSMAL AFIB AND NONSUSTAINED VENTRICULAR TACHYCARDIA RIGHT BUNDLE BRANCH BLOCK ABNORMAL ECG INTERPRETATION BASED ON A DEFAULT AGE OF 41 YEARS PREVIOUS TRACING : 11/02/2017 13.44 DOCTOR: Adam Vasques Interpretating Date/Time 11/10/2017 09:01:59
--- NOTE | 2017-11-10 09:03 | EKG ---
Date Performed: 11/02/2017 Time Performed: 13:48:47 PTAGE: 82 years EKG: SINUS TACHYCARDIA WITH FIRST DEGREE AV BLOCK ABNORMAL ECG INTERPRETATION BASED ON A DEFAULT AGE OF 40 YEARS PREVIOUS TRACING : 11/02/2017 13.48 Compared to previous tracing PAROXYMAL ATRIAL FIBRILL ATION IS NO LONGER PRESENT DOCTOR: Adam Vasques Interpretating Date/Time 11/10/2017 09:01:48
== END 2017-11-02 18:06 | disposition home or self-care (01) ==
LOC: NEPE 13:25
DX: R00.0 Tachycardia, unspecified (principal); I10 Essential (primary) hypertension; M10.9 Gout, unspecified; Z79.899 Other long term (current) drug therapy
CPT/HCPCS: 71045; 71275; 80053; 82550; 84443; 84484; 85025; 85610; 85730; 96361; 96374; 96375; 99285; J0153; J7040; Q9967; 93005